=== PATIENT | male | born 1945 | race Caucasian/White ===

== ENCOUNTER → 2019-05-09 12:43 | Outpatient (BNVA) | payer MEDICARE, OTHER, SELFPAY | PROVIDERS: Family Provider Internal Medicine; PCP Internal Medicine; Visit Provider Specialist | DX: G30.9 Alzheimer's disease, unspecified (principal); F02.80 Dementia in other diseases classified elsewhere, unspecified severity, without behavioral disturbance, psychotic disturbance, mood disturbance, and anxiety | CPT/HCPCS: 99213 ==

== ENCOUNTER 2019-05-21 18:49 | Inpatient (IN) | payer MEDICARE, OTHER, SELFPAY ==
[2019-05-21 18:56] VITALS: BP 126/74; PULSE 88; RESP 18; TEMP 38.2; O2SAT 96; BMI 22.2
--- NOTE | 2019-05-21 19:03 | XRR_ITS ---
PROCEDURE INFORMATION: Exam: XR Chest, 1 View Exam date and time: 05/21/2019 7:27 PM Age: 73 years old Clinical indication: Cough TECHNIQUE: Imaging protocol: XR of the chest Views: 1 view. COMPARISON: XR CHEST 06/15/2018 2:56 PM FINDINGS: Lungs: Poor inspiration. Decreased lung volumes. Increased bibasilar interstitial lung disease, more prominent on the left, which could be due to interstitial pneumonitis given the history. No central pulmonary vascular congestion or perihilar edema. No focal dense lung consolidation. Pleural space: No pleural effusion or pneumothorax. Heart/Mediastinum: The cardiac silhouette is not enlarged. The mediastinal contours are normal. Bones/joints: There is a curvature of the lower thoracic spine convex to the right associated with multilevel disc degeneration. XR/XR chest 1V portable [id number] IMPRESSION: Asymmetric bibasilar interstitial lung disease, possibly interstitial pneumonitis.
--- NOTE | 2019-05-21 19:08 | ED_ITS ---
Entered by Rae Dill, acting as scribe for Dawit Young DO May 21, 2019 18:49 HPI - Fever General: Chief Complaint: Fever Stated Complaint: syncope Time Seen by Provider: 05/21/19 19:06 Source: family Mode of arrival: EMS Limitations: no limitations History of Present Illness: HPI Narrative: 73 yo Male presents to ED with complaint of . Pt's states that the patient has dementia. Pt's states that the patient has been doing really well and has been very active. Pt's states that the patient almost fell down the stairs today. Pt's states that when the patient woke up from his nap, it took 2 of them to get him up and to the bathroom and that the patient has had increased weakness. Pt's states that the patient has had difficulty lifting his feet. Pt's states that the patient had a 102 temperature at home. Pt's states that all of these changes occurred today around 16:00. Pt's states that the patient hasn't h ad any other drastic changes recently. MD elicited complaint: fever and weakness Onset (ago): hour(s) Measured temperature: 103.2 F Exacerbating factors: nothing Relieving factors: nothing Associated symptoms: Reports other (weakness); Deny abdominal pain, back/flank pain, chills, chest pain, confusion, diarrhea, dysuria, extremity pain, headache(s), nasal congestion, nausea, night sweats or vomiting Treatments prior to arrival fever: none Review of Systems Const: Reports: fever; Denies: chills, body aches, fatigue, malaise or night sweats Eyes: Denies: change in vision or blurry vision ENMT: Denies: throat pain, oral sores/lesions, dental pain, nasal discharge or nasal congestion Card: Denies: chest pain, palpitations, irregular heart rhythm, edema, syncope, shortness of breath on exertion, shortness of breath when lying down or leg pain with exertion Resp: Denies: shortness of breath, productive cough, non-productive cough or wheezing GI: Denies: abdominal pain, nausea, vomiting, vomiting blood, coffee grounds in vomit, difficulty swallowing, heartburn/indigestion, diarrhea, constipation, cramping, blood in stool or black tarry stool : Denies: flank pain, difficulty urinating, painful urination, urinary frequency, urinary urgency, urinary incontinence or blood in urine Musc: Denies: neck pain, back pain, extremity pain, extremity swelling, joint pain or joint swelling Skin/Breast: Denies: rash, itching or redness Neuro: Reports: weakness in extremities; Denies: headache, numbness in extremities, changes in sensation, lack of coordination, difficulty walking, frequent falls, dizziness, vertigo or confusion Psych: Denies: anxiety, depression, loss of interest, visual hallucinations, auditory hallucinations, suicidal ideation or homicidal ideation Endo: Denies: excessive urination, excessive thirst, tired all the time or cold intolerance Marcelino/Lymph: Denies: easy bruising, easy bleeding, petechiae, enlarged lymph nodes or tender lymph nodes PFSH ED PFSH: Medical History (Updated 05/25/19 @ 06:11 by Dawit Young DO) Alzheimer's dementia Dementia Immunosuppressed status Surgical History (Updated 05/25/19 @ 06:11 by Dawit Young DO) Liver transplant recipient Family History Denies family history of Diabetes CAD (coronary artery disease) Cancer Hypertension Stroke Social History Smoking and tobacco status: never smoked Alcohol intake: never History of recent travel: No Physical Exam Const: COMMON NORMALS: average body habitus, oriented x3 and alert GENERAL APPEARANCE: cooperative, comfortable, well kempt and well developed NUTRITIONAL APPEARANCE: obese ORIENTATION/CONSCIOUSNESS: Yes awake, Yes oriented to person and Yes oriented to place HENMT: COMMON NORMALS: normocephalic, head/scalp atraumatic, EAC's normal, TM's normal bilaterally, external nose normal, moist oral mucous membranes and oropharynx normal HEAD & SCALP: normocephalic and atraumatic NOSE: external nose normal EXTERNAL AUDITORY CANAL: EAC's normal TYMPANIC MEMBRANE: TM's normal bilaterally MOUTH: oral and palatal mucosa normal, lip normal and tongue normal THROAT: posterior oropharynx normal and tonsils normal Eye: COMMON NORMALS: PERRL, EOMs intact bilaterally, conjunctivae normal and no scleral icterus CONJUNCTIVA: Yes conjunctivae normal PUPIL: Yes PERRL Neck/C-Spine: COMMON NORMALS: full ROM, no lymphadenopathy, supple, no meningeal signs and thyroid normal THYROID: thyroid normal and asymmetrical Lymph: LYMPHATIC: no lymphadenopathy noted Resp: COMMON NORMALS: normal respiratory effort, no retractions, no use of accessory muscles and clear to auscultation bilaterally AUSCULTATION: clear to auscultation bilaterally Cardio: COMMON NORMALS: regular rate and regular rhythm RATE: regular rate RHYTHM: regular rhythm HEART SOUNDS: no murmurs GI: COMMON NORMALS: normal to inspection, nondistended, normoactive bowel sounds, soft to palpation and no hepatosplenomegaly PALPATION: Yes soft and Yes no hepatosplenomegaly : COMMON NORMALS: Yes no CVA tenderness BLADDER/KIDNEY EXAM: Yes no CVA tenderness Back/Pelvis: COMMON NORMALS: no CVA tenderness LUMBAR SPINE/LOWER BACK: Yes normal to inspection Extremity: COMMON NORMALS: no clubbing, cyanosis or edema, no calf tenderness and no pedal edema Neuro: COMMON NORMALS: oriented x3 SENSORIUM/ORIENTATION: Yes alert, Yes oriented to person and Yes oriented to place MENINGEAL SIGNS: Yes no meningeal signs Psych: APPEARANCE: Yes well kempt Skin: COMMON NORMALS: no rashes or lesions noted and skin turgor normal GENERAL SKIN EXAM: no rashes or lesions noted and turgor normal Course Vital Signs: Vital signs: Vital Signs Temperature 99.0 F 05/23/19 14:54 Pulse Rate 95 05/23/19 14:54 Respiratory Rate 18 05/23/19 14:54 Blood Pressure 90/57 05/23/19 14:54 Pulse Oximetry 94 05/23/19 14:54 MDM - Fever MDM Narrative: Medical decision making narrative: Is a history of primary ascending cholangitis he previously had a liver transplant he still on immunosuppressants and he has a elevated fever of unknown origin. Work-up in ER did not show specific source. We will go ahead and admit for fever of unknown origin initial antibiotic started discussed with Dr. Patterson. Lab Data: Labs: Lab Results 05/21/19 05/21/19 05/21/19 Range/Units 19:20 19:20 19:20 WBC 2.6 L (4.0-10.0) 10^3/ uL RBC 4.00 L (4.1-5.3) 10^6/u L Hgb 13.4 (11.7-16.6) g/dL Hct 37.9 L (42.0-52.0) % MCV 94.8 H (80-94) fL MCH 33.5 (28.0-34.0) pg MCHC 35.4 (30.0-36.0) g/dL RDW 12.7 (12.1-15.1) % Plt Count 80 L (130-400) 10^3/c mm MPV 8.8 (7.4-10.4) fL Neut % (Auto) 55.5 % Lymph % (Auto) 28.5 % [place] % (Auto) 11.7 % Eos % (Auto) 0.0 % Baso % (Auto) 0.4 % Neut # (Auto) 1.4 L (1.8-7.7) 10^3/u L Lymph # (Auto) 0.7 L (0.8-4.8) 10^3/u L [place] # (Auto) 0.3 (0.2-0.9) 10^3/u L Eos # (Auto) 0.0 (0.0-0.8) 10^3/u L Baso # (Auto) 0.0 (0.0-0.1) 10^3/u L Nucleated RBC % (a uto) 0 % Nucleated RBCs # 0.0 /100WBC PT (10.5-13.3) SECO NDS INR (0.8-1.2) APTT (23.9-36.7) SECO NDS Sodium 124 L (136-145) mmol/L Potassium 4.1 (3.5-5.1) mmol/L Chloride 87 L (98-107) mmol/L Carbon Dioxide 25 (22-29) mmol/L Anion Gap 16.1 (5-19) BUN 15 (8-23) mg/dL Creatinine 0.8 (0.7-1.2) mg/dL Glucose 180 H (65-115) mg/dL Calculated Osmolal ity 259 L (285-295) mOsm/k g Lactic Acid 1.3 (0.5-2.2) mmol/L Calcium 9.5 (8.5-10.5) mg/dL Magnesium 1.6 L (1.7-2.3) mg/dL Total Bilirubin 0.8 (0.15-1.2) mg/dL AST 51 H (0-40) U/L ALT 48 H (0-41) U/L Alkaline Phosphata se 281 H (40-130) IU/L Total Protein 7.1 (6.6-8.7) g/dL Albumin 4.1 (3.5-5.2) g/dL Globulin 3.0 (1.3-4.6) g/dL Urine Color (Yellow) Urine Appearance (CLEAR) Urine pH (5-7) Ur Specific Gravit y (1.005-1.030) Urine Protein (Negative) Urine Glucose (UA) (Normal) Urine Ketones (Negative) Urine Blood (Negative) Urine Nitrate (Negative) Urine Bilirubin (NEGATIVE) Urine Urobilinogen (Negative) mg/dL Ur Leukocyte Ginny ase (Negative) Urine RBC (0-2) /hpf Urine WBC (0-5) /hpf Ur Squamous Epith Cells (0-5) Urine Bacteria (NONE) Influenza Type A A g (Negative) POC Influenza B Ag (Negative) 05/21/19 05/21/19 05/21/19 Range/Units 19:20 19:46 20:47 WBC (4.0-10.0) 10^3/ uL RBC (4.1-5.3) 10^6/u L Hgb (11.7-16.6) g/dL Hct (42.0-52.0) % MCV (80-94) fL MCH (28.0-34.0) pg MCHC (30.0-36.0) g/dL RDW (12.1-15.1) % Plt Count (130-400) 10^3/c mm MPV (7.4-10.4) fL Neut % (Auto) % Lymph % (Auto) % [place] % (Auto) % Eos % (Auto) % Baso % (Auto) % Neut # (Auto) (1.8-7.7) 10^3/u L Lymph # (Auto) (0.8-4.8) 10^3/u L [place] # (Auto) (0.2-0.9) 10^3/u L Eos # (Auto) (0.0-0.8) 10^3/u L Baso # (Auto) (0.0-0.1) 10^3/u L Nucleated RBC % (a uto) % Nucleated RBCs # /100WBC PT 15.00 H (10.5-13.3) SECO NDS INR 1.14 (0.8-1.2) APTT 33.8 (23.9-36.7) SECO NDS Sodium (136-145) mmol/L Potassium (3.5-5.1) mmol/L Chloride (98-107) mmol/L Carbon Dioxide (22-29) mmol/L Anion Gap (5-19) BUN (8-23) mg/dL Creatinine (0.7-1.2) mg/dL Glucose (65-115) mg/dL Calculated Osmolal ity (285-295) mOsm/k g Lactic Acid (0.5-2.2) mmol/L Calcium (8.5-10.5) mg/dL Magnesium (1.7-2.3) mg/dL Total Bilirubin (0.15-1.2) mg/dL AST (0-40) U/L ALT (0-41) U/L Alkaline Phosphata se (40-130) IU/L Total Protein (6.6-8.7) g/dL Albumin (3.5-5.2) g/dL Globulin (1.3-4.6) g/dL Urine Color Dark yellow (Yellow) Urine Appearance Clear (CLEAR) Urine pH 6 (5-7) Ur Specific Gravit y 1.020 (1.005-1.030) Urine Protein 1+ H (Negative) Urine Glucose (UA) Norm (Normal) Urine Ketones Negative (Negative) Urine Blood 2+ H (Negative) Urine Nitrate Negative (Negative) Urine Bilirubin Neg (NEGATIVE) Urine Urobilinogen Norm (Negative) mg/dL Ur Leukocyte Ginny ase Negative (Negative) Urine RBC 0-4 H (0-2) /hpf Urine WBC Rare (0-5) /hpf Ur Squamous Epith Cells Rare (0-5) Urine Bacteria Trace (NONE) Influenza Type A A g Negative (Negative) POC Influenza B Ag Negative (Negative) Discharge Plan Discharge Patient Disposition: Admitted As Inpatient Admit Provider: Sammi Patterson Clinical Impression: Liver transplant recipient, Immunosuppressed status, Fever and chills, Alzheimer's dementia, Sclerosing cholangitis Condition: Stable Discharge Orders: Transfer Out of Facility (Order); Ordered 05/23/19 Ordered By: Alden Min Referrals: Isra Reyes DO [Primary Care Provider] - Interventions: ED Discharge Assessment Last Done: 05/22/19 00:13 Discharge Date/Time: 05/22/19 00:15 Coding Level of Care Code ED Meat Blender for Chg Fwd Exam Comprehensive The documentation recorded by the Fuentes smith Carmen, accurately reflects the service I personally performed and the decisions made by Hector andrea Curtis L, DO May 21, 2019 18:49
[2019-05-21 19:26] LABS: Basophils % 0.4 %; Hematocrit 37.9 % (42.0-52.0); Hemoglobin 13.4 g/dL (11.7-16.6); Lymphocytes # 0.7 10^3/uL (0.8-4.8); Lymphocytes % 28.5 %; Mean Corpuscular HGB Conc 35.4 g/dL (30.0-36.0); Mean Corpuscular Hemoglobin 33.5 pg (28.0-34.0); Mean Corpuscular Volume 94.8 fL (80-94); Mean Platelet Volume 8.8 fL (7.4-10.4); Monocytes # 0.3 10^3/uL (0.2-0.9); Monocytes % 11.7 %; Neutrophils # 1.4 10^3/uL (1.8-7.7); Neutrophils % 55.5 %; Nucleated Red Blood Cells % 0 %; Platelet Count 80 10^3/cmm (130-400); Red Cell Distribution Width 12.7 % (12.1-15.1); White Blood Count 2.6 10^3/uL (4.0-10.0)
[2019-05-21 19:51] LABS: Alanine Aminotransferase 48 U/L (0-41); Albumin Level 4.1 g/dL (3.5-5.2); Alkaline Phosphatase 281 IU/L (40-130); Anion Gap 16.1 (5-19); Aspartate Amino Transferase 51 U/L (0-40); Blood Urea Nitrogen 15 mg/dL (8-23); Calcium 9.5 mg/dL (8.5-10.5); Carbon Dioxide 25 mmol/L (22-29); Chloride 87 mmol/L (98-107); Creatinine Clr Calc Pharmacy 84.9089; Glucose 180 mg/dL (65-115); Magnesium 1.6 mg/dL (1.7-2.3); Osmolality Calculated 259 mOsm/kg (285-295); Potassium 4.1 mmol/L (3.5-5.1); Sodium 124 mmol/L (136-145); Total Bilirubin 0.8 mg/dL (0.15-1.2); Total Protein 7.1 g/dL (6.6-8.7)
[2019-05-21 19:52] LABS: Lactic Sepsis W/Reflex 1.3 mmol/L (0.5-2.2)
[2019-05-21] MEDS: acetaminophen 325 mg Tablet 650 MG PO (20:12)
[2019-05-21] MEDS: sodium chloride 0.9% 500 ML 999 ML IV (20:23)
--- NOTE | 2019-05-21 20:32 | XRR_ITS ---
PROCEDURE INFORMATION: Exam: XR Pelvis Exam date and time: 05/21/2019 8:45 PM Age: 73 years old Clinical indication: Pain and abnormal findings; Abnormal lab test; Elevated alk phos; Pelvic pain; Additional info: Pain/elevated alk phos TECHNIQUE: Imaging protocol: XR pelvis. Views: 1 or 2 view. COMPARISON: No relevant prior studies available. FINDINGS: Bones/joints: No fracture. No dislocation. No lytic or sclerotic lesions. No hip joint space narrowing. The symphysis pubis and sacroiliac joints are not diastatic. Soft tissues: No acute soft tissue abnormality. XR/XR pelvis 1-2V* [id number] IMPRESSION: No acute osseous abnormality.
[2019-05-21] MEDS: levofloxacin-dextrose 5 % 750 MG/150 ML PREMIX 150 MG IV (20:53)
[2019-05-21 20:55] LABS: INR 1.14 (0.8-1.2)
[2019-05-21 21:02] VITALS: TEMP 38.7
[2019-05-21 21:02] LABS: Partial Thromboplastin Time 33.8 SECONDS (23.9-36.7)
[2019-05-21 21:34] LABS: Urine Appearance Clear (CLEAR); Urine Color Dark Yellow (Yellow); pH Urine 6 (5-7)
[2019-05-21 21:35] LABS: Bacteria Urine TRACE; Bilirubin Urine Neg (NEGATIVE); Blood Urine 2+ (Negative); Glucose Urine UA Norm (Normal); Ketones Urine Negative (Negative); Leukocyte Esterase Urine Negative (Negative); Nitrate Urine Negative (Negative); Protein Urine 1+ (Negative); RBC Urine 0-4 /hpf (0-2); Squamous Epithelial Cell Urine RARE (0-5); Urobilinogen Urine Norm (Negative); WBC Urine RARE /hpf (0-5)
[2019-05-21 21:55] LABS: Influenza A by IFA Negative (Negative); Influenza B by IFA Negative (Negative)
[2019-05-21] MEDS: sodium chlor 0.9% + KCl 20 mEq 20 MEQ/1,000 ML BAG 125 MEQ IV (22:26)
[2019-05-21 22:30] VITALS: BP 133/77; PULSE 89; RESP 16; TEMP 38.1; O2SAT 93
--- NOTE | 2019-05-21 22:32 | PC.NURSE ---
pt temp 100.5 @ 7096
[2019-05-21 23:09] VITALS: BP 122/82; PULSE 89; RESP 16; TEMP 38.7; O2SAT 94
[2019-05-22] VITALS (11 sets, daily range): BP systolic 101–126; BP diastolic 51–79; PULSE 78–128; RESP 18–20; TEMP 36.9–38.7; O2SAT 92–98; BMI 22.2
--- NOTE | 2019-05-22 00:01 | P.HP_ITS ---
Providers/Chief Complaint Admitting Physician: Sammi Patterson MD Primary Care Provider: Isra Reyes DO Chief Complaint: syncope History of Present Illness Thai Fagan is a 73 year old male with a PMH liver transplant for primary biliary cirrhosis, currently on tacrolimus and MMF, Alzheimer's dementia, hypothyroidism, who is presenting today with c/o fever and cough since the past 2-3 days. noted him to be febrile and having chills starting yesterday evening. Prior to then, he had been having a dry cough over the past week. No expectoration. No shortness of breath. No c/o chest pain , dyspnea, dysuria, nausea, vomiting or diarrhea. No rashes anywhere. CXR per my read does not show any gross infiltrates. Patient is saturating 93% on RA. T max 101.6F. Of note, he has recently had family members including son and grandchildren visit him from [place]. Per , her children had quarantined themselves for 14 days prior to travel to [place] as a precautionary measure. They travelled by car. Review of Systems General: Reports: 10 or more systems reviewed and unremarkable except in HPI and below Const: Denies: fever, chills or body aches Eyes: Denies: change in vision, blurry vision or photophobia ENMT: Reports: hoarseness; Denies: throat pain, enlarged tonsils, painful swallowing or nasal congestion Card: Denies: chest pain, palpitations, irregular heart rhythm, edema, swelling of feet/ankles, lightheadedness, pre-syncope, shortness of breath on exertion or shortness of breath when lying down Resp: Denies: shortness of breath, productive cough, non-productive cough, wheezing, stridor, pain on inspiration, change in phlegm color, coughing up blood or chest congestion GI: Denies: abdominal pain, nausea, vomiting, vomiting blood, coffee grounds in vomit, difficulty swallowing, heartburn/indigestion, diarrhea, constipation, cramping, change in stool character, blood in stool or black tarry stool : Denies: flank pain, painful urination, urinary frequency, urinary urgency, urinary hesitancy or blood in urine Musc: Denies: neck pain, back pain, extremity pain, joint swelling, joint warmth or deformity Neuro: Denies: headache, numbness in extremities, weakness in extremities, changes in sensation, difficulty walking, frequent falls, dizziness, vertigo, behavioral changes, slurred speech or seizure-like activity Psych: Denies: anxiety, depression, suicidal ideation or homicidal ideation Endo: Denies: excessive urination, excessive thirst, tired all the time, cold intolerance or hot flashes Marcelino/Lymph: Denies: easy bruising or easy bleeding Medications/Allergies Allergies Allergy/AdvReac Type Severity Reaction Status Date / Time No Known Allergies Allergy Verified 05/21/19 19:02 PFSH Acute PFSH: Medical History (Updated 05/22/19 @ 00:45 by Sammi Patterson MD) Alzheimer's dementia Dementia Immunosuppressed status Surgical History (Updated 05/22/19 @ 00:45 by Sammi Patterson MD) Liver transplant recipient Family History Denies family history of Diabetes CAD (coronary artery disease) Cancer Hypertension Stroke Social History Smoking and tobacco status: never smoked Alcohol intake: never History of recent travel: No Vitals/I&O/Wt Last Vital Signs Temp 100.5 F H 05/21/19 22:30 Pulse 89 05/21/19 22:30 Resp 16 05/21/19 22:30 BP 133/77 05/21/19 22:30 Pulse Ox 93 05/21/19 22:30 Weight last 48 hrs Weight 70.307 kg Physical Exam Narrative: EXAM NARRATIVE: GEN: Awake, alert and oriented, no acute distress, tremors+, baseline per , forgetful (doesnt know if he is on immunosuppressants, liver transplant, etc) CVS: S1S2 N RS: CTA B/L Abd: Soft, nt/nd , bs+ RESIDENCY PROGRAM COORDINATOR: no focal neuro deficits Data : 05/21/19 19:20 05/21/19 19:20 Micro: Microbiology 05/21/19 20:22 Blood Culture - Preliminary Blood SPECIMEN COLLECTED 05/21/19 19:20 Blood Culture - Preliminary Blood SPECIMEN COLLECTED A&P Assessment and plan (1) Liver transplant recipient: Status: Acute Code(s): Z94.4 - Liver transplant status (2) Sclerosing cholangitis: Status: Acute Code(s): K83.09 - Other cholangitis (3) Alzheimer's dementia: Status: Acute Code(s): G30.9 - Alzheimer's disease, unspecified; F02.80 - Dementia in other diseases classified elsewhere without behavioral disturbance (4) Immunosuppressed status: Status: Acute Code(s): D89.9 - Disorder involving the immune mechanism, unspecified (5) Fever and chills: Status: Acute Code(s): R50.9 - Fever, unspecified Additional A&P Information Admit to med/surg for fever w/up in immunocompromised patient 1. Fever and Chills Patient c/o fever, chills and cough over the past 2-3 days Does not apepar to have any localizing signs at this present time. CXR without consolidation per my read, UA does not appear c/w UTI, no bedsores, no diarrhea, nausea or vomiting. Influenza swab negative. Check blood cx May be viral URI, given recent h/o contact with family members from [place] from an area with COVID outbreak, and patient's underlying immunocompromised status, will check COVID PCR. Isolation precautions until then. Cefepime 2g iv q12h empirically while undergoing fever work up. No visble pneumonitis, eye symptoms or GI symptoms at this time, less likely CMV reactivation 2. H/o liver transplant on tacrolimus and MMF. AST/ALT mildly elevated at 51 and 48. Check tacrolimus level holding tacrolimus and MMF for overnight while undergoing fever w/up. Will need to discuss with patients' barrel roller operator in am regarding recommendations for further holding vs resuming meds at this time and risk of rejection. No coagulop athy at this present time 3. Hyponatremia: currenty Na 124, appears to be at baseline per review of prior labs from nov and dec 2018. Clinically appears mildly dehydrated, IVF hydration for overnight 4. Hypomaagnesemia: supplement 2g iv 5. h/o sclerosing cholangitis: continue mesalamine. tacro+ MMF as above 6. Leukopenia, thrombocytopenia, ? related to tacrolimus vs sepsis. Check tacrolimus level Full code DVT ppx: heparin Attestations Medical Necessity Statement*: Anticipate >2MN admission for w/up fever in immunocomrpomised host Coding Level of Care Code Acute Car Cleaner for [facility] Fw Diagnoses Liver transplant recipient Z94.4 Sclerosing cholangitis K83.09 Alzheimer's dementia G30.9; F02.80 Immunosuppressed status D89.9 Fever and chills R50.9
[2019-05-22] MEDS: cefepime 2,000 MG in sodium chloride 0.9% (plus) 50 ML 100 MG IV ×2 (00:33→11:28)
--- NOTE | 2019-05-22 01:07 | PC.NURSE ---
Patient and educated about the importance of wearing a mask if they exit the room. Patient and educated on how to properly wash there hands and the importance of isolating themselves from others until the COVID-19 results come back. Patient and given print out on COVID-19 and all questions answered.
[2019-05-22] MEDS: magnesium sulfate premix 2 GM/50 ML PIGGYBACK IV (02:21)
[2019-05-22] MEDS: sodium chlor 0.9% + KCl 20 mEq 20 MEQ/1,000 ML BAG 125 MEQ IV (04:41)
[2019-05-22] MEDS: heparin 5,000 unit/mL INJ 1 mL 5000 UNIT SUBCUT ×2 (04:43→18:15)
[2019-05-22 06:33] LABS: Basophils % 0.5 %; Hematocrit 35.1 % (42.0-52.0); Hemoglobin 12.4 g/dL (11.7-16.6); Lymphocytes # 0.5 10^3/uL (0.8-4.8); Lymphocytes % 26.8 %; Mean Corpuscular HGB Conc 35.3 g/dL (30.0-36.0); Mean Corpuscular Volume 93.4 fL (80-94); Mean Platelet Volume 9.2 fL (7.4-10.4); Monocytes # 0.3 10^3/uL (0.2-0.9); Monocytes % 12.6 %; Neutrophils % 52.5 %; Nucleated Red Blood Cells % 0 %; Platelet Count 69 10^3/cmm (130-400); Red Blood Count 3.76 10^6/uL (4.1-5.3); Red Cell Distribution Width 12.6 % (12.1-15.1)
[2019-05-22 06:47] LABS: Magnesium 1.9 mg/dL (1.7-2.3)
[2019-05-22 06:48] LABS: Alanine Aminotransferase 42 U/L (0-41); Albumin Level 3.6 g/dL (3.5-5.2); Alkaline Phosphatase 259 IU/L (40-130); Anion Gap 10.3 (5-19); Aspartate Amino Transferase 50 U/L (0-40); Blood Urea Nitrogen 14 mg/dL (8-23); Calcium 8.7 mg/dL (8.5-10.5); Carbon Dioxide 27 mmol/L (22-29); Chloride 90 mmol/L (98-107); Creatinine Clr Calc Pharmacy 84.9089; Globulin 2.8 g/dL (1.3-4.6); Glucose 140 mg/dL (65-115); Osmolality Calculated 255 mOsm/kg (285-295); Potassium 4.3 mmol/L (3.5-5.1); Sodium 123 mmol/L (136-145); Total Bilirubin 0.9 mg/dL (0.15-1.2); Total Protein 6.4 g/dL (6.6-8.7)
[2019-05-22 07:25] LABS: Slide Review Slide Review Perform
[2019-05-22] MEDS: aspirin 81 mg EC Tablet PO (08:48)
[2019-05-22] MEDS: memantine 5 mg tablet 10 MG PO ×2 (08:49→18:15)
[2019-05-22] MEDS: levothyroxine 112 mcg Tablet PO (08:49)
[2019-05-22] MEDS: tamsulosin 0.4 mg Capsule PO (08:49)
[2019-05-22] MEDS: levothyroxine 25 mcg Tablet PO (08:49)
[2019-05-22] MEDS: finasteride 5 mg Tablet PO (08:49)
[2019-05-22] MEDS: allopurinol 300 mg Tablet 150 MG PO (08:50)
[2019-05-22] MEDS: venlafaxine ER (24HR) 150 mg Capsule PO (08:50)
[2019-05-22] MEDS: donepezil 5 MG Tablet 20 MG PO (10:09)
--- NOTE | 2019-05-22 17:08 | CTR_ITS ---
PROCEDURE INFORMATION: Exam: CT Chest Without Contrast Exam date and time: 05/22/2019 5:15 PM Age: 73 years old Clinical indication: Patient HX: Fever, PT denies surg HX on spine; Additional info: Interstitial changes, fever TECHNIQUE: Imaging protocol: Computed tomography of the chest without contrast. Total DLP: 646.1 mGy-cm Radiation optimization: All CT scans at this facility use at least one of these dose optimization techniques: automated exposure control; mA and/or kV adjustment per patient size (includes targeted exams where dose is matched to clinical indication); or iterative reconstruction. COMPARISON: CR XR chest 1V portable [id number] 05/21/2019 7:14 PM FINDINGS: Lungs: Subpleural atelectasis in the lung bases, lingula, and right middle lobe. The lungs are otherwise clear. Pleural space: Unremarkable. No pneumothorax. No pleural effusion. Heart: Coronary artery calcifications. The heart size is normal. Aorta: Unremarkable. No aortic aneurysm. Inferior vena cava: Sutures along the inferior vena cava , likely from prior liver transplant. Lymph nodes: Subcentimeter retroperitoneal lymph nodes are most likely reactive. Pancreas: Course scattered calcifications in the pancreas, consistent with chronic calcific pancreatitis. Spleen: Splenic hilar varices. Bones/joints: Unremarkable. No acute fracture. Soft tissues: Unremarkable. CT/CT chest [facility] [id number] IMPRESSION: 1. No acute findings. Radiation Dose CTDIVOL = (mGy): DLP = 646.1 (mGy-cm)
--- NOTE | 2019-05-22 17:32 | CTR_ITS ---
PROCEDURE INFORMATION: Exam: CT Cervical Spine Without Contrast Exam date and time: 05/22/2019 5:37 PM Age: 73 years old Clinical indication: Patient HX: Swelling, PT denies surg HX on spine; Additional info: Swelling few days ago R neck, fever, immunosuppressed TECHNIQUE: Imaging protocol: Computed tomography images of the cervical spine without contrast. Total DLP: 751.7 mGy-cm Radiation optimization: All CT scans at this facility use at least one of these dose optimization techniques: automated exposure control; mA and/or kV adjustment per patient size (includes targeted exams where dose is matched to clinical indication); or iterative reconstruction. COMPARISON: CT Cervical Spine wo* [id number] 01/27/2019 11:05 AM FINDINGS: Vertebrae: The vertebral body alignment and stature is normal. The facets are intact with mild degenerative changes. Disc space narrowing at C5-C6 and C6-C7 with degenerative endplate sclerosis and spurring. C1-C2: Degenerative changes of the odontoid process. C2-C3: No disc herniation. No spinal canal stenosis. No neural foraminal narrowing. C3-C4: No disc herniation. No spinal canal stenosis. No neural foraminal narrowing. C4-C5: No disc herniation. No spinal canal stenosis. No neural foraminal narrowing. C5-C6: Bilateral bony foraminal stenosis at C5-C6. Disc bulges with mild central canal stenosis at C5-C6. C6-C7: Bilateral bony foraminal stenosis at C6-C7. Disc bulges with mild central canal stenosis at C6-C7. C7-T1: No disc herniation. No spinal canal stenosis. No neural foraminal narrowing. Soft tissues: Unremarkable. Mastoid air cells: Small left mastoid effusion. Lungs: Lung apices are normal. Other findings: CT/CT cervical spin wo con* [id number] IMPRESSION: 1. No acute findings. 2. Degenerative changes, greatest at C5-C6 and C6-C7. Radiation Dose CTDIVOL = (mGy): DLP = 751.7 (mGy-cm)
--- NOTE | 2019-05-22 17:33 | CTR_ITS ---
PROCEDURE INFORMATION: Exam: CT Lumbar Spine Without Contrast Exam date and time: 05/22/2019 5:37 PM Age: 73 years old Clinical indication: Low back pain; Patient HX: PT denies surg HX on spine; Additional info: Fever, immunosuppressed, difficulty ambulating TECHNIQUE: Imaging protocol: Computed tomography images of the lumbar spine without contrast. Total DLP: 2488.47 mGy-cm Radiation optimization: All CT scans at this facility use at least one of these dose optimization techniques: automated exposure control; mA and/or kV adjustment per patient size (includes targeted exams where dose is matched to clinical indication); or iterative reconstruction. COMPARISON: No relevant prior studies available. FINDINGS: Vertebrae: The vertebral body alignment and stature is normal. Multiple Schmorl's nodes in superior L3, L4, and L5. Degenerative endplate changes at all lumbar levels. The facets are intact with degenerative changes, greatest at L3-L4 and L4-L5. L1-L2: No disc herniation. No spinal canal stenosis. No neural foraminal narrowing. L2-L3: Circumferential disc bulge at L2-L3. Mild central canal stenosis. Mild bilateral foraminal stenosis. L3-L4: Circumferential disc bulge at L3-L4. Mild-moderate central canal stenosis. Mild right and moderate left foraminal stenosis. L4-L5: Disc space narrowing at L4-L5. Circumferential disc bulge at L4-L5. Moderate bilateral foraminal stenosis. Mild central canal stenosis. L5-S1: Mild circumferential disc bulge at L5-S1. No central canal stenosis. Moderate bilateral foraminal stenosis. Liver: Changes of prior liver transplant. Lymph nodes: Subcentimeter retroperitoneal and mesenteric lymph nodes are most likely reactive. Vasculature: Splenic hilar varices. CT/CT lumbar spine wo con* [id number] IMPRESSION: 1. No acute findings. 2. Multilevel degenerative changes with foraminal and central canal stenosis as described. Radiation Dose CTDIVOL = (mGy): DLP = 2488.47 (mGy-cm)
[2019-05-22 18:23] LABS: LAB Peripheral Smear Sent for Review
--- NOTE | 2019-05-22 19:43 | P.PN_ITS ---
Subjective Subjective: Interval history: He is feeling well. Denies any cough, shortness of breath, nausea, vomiting, dysphagia, diarrhea, headache, vision changes. No dysuria. He has been having some difficulty standing up per his which is somewhat new and previously was walking without assistance. He denies any back pain, denies any numbness or pain radiating down his legs. He has history of chronic urinary incontinence which has been going on for years, but denies any bowel incontinence. Denies any saddle anesthesia. Reports was feeling a swelling on the right side of his neck where the neck joins his head which she sometimes felt when turning his head. This he says has resolved. Denies any earache or ear discharge. Reports chronic arthritis in his left knee, without current pain at rest, no swelling or erythema. Reports discussions have been ongoing with his doctor re garding replacement of that knee. Today noted to have a papular rash by the nurse sometime in the afternoon on the left flank/left side abdomen. No vesicles. Vitals/I&O/Wt Last Vital Signs Temp 100.1 F H 05/22/19 19:01 Pulse 91 05/22/19 19:01 Resp 19 H 05/22/19 19:01 BP 113/58 05/22/19 19:01 Pulse Ox 94 05/22/19 19:01 05/22/19 05/22/19 05/22/19 06:59 14:59 22:59 Intake Total 1071.25 / 1071.25 290 / 290 240 / 530 Output Total 200 / 200 Balance 871.25 / 871.25 290 / 290 240 / 530 Weight last 48 hrs Weight 70.307 kg Weight 70.307 kg Physical Exam Const: COMMON NORMALS: no apparent distress and oriented x3 OTHER: is at bedside. HENMT: COMMON NORMALS: oropharynx normal (No thrush or ulcers.) Eye: OTHER: No conjunctival injection. Neck/C-Spine: COMMON NORMALS: no JVD Resp: COMMON NORMALS: normal respiratory effort and clear to auscultation bilaterally AUSCULTATION: clear to auscultation bilaterally Cardio: COMMON NORMALS: no JVD, regular rhythm, S1 normal heart sound, S2 normal heart sound and no murmurs RHYTHM: regular rhythm HEART SOUNDS: S1 normal and S2 normal GI: COMMON NORMALS: normal to inspection, nondistended, normoactive bowel sounds, soft to palpation and non-tender PALPATION: Yes soft Extremity: COMMON NORMALS: no joint enlargement and no pedal edema Neuro: COMMON NORMALS: oriented x3 and moves all extremities Skin: RASHES: rashes noted (Left flank/left side abdomen papular erythematous rash, different size papules, without vesicles) Data : 05/22/19 05:54 05/22/19 05:54 Micro: Microbiology 05/21/19 19:20 Blood Culture - Preliminary Blood NEGATIVE TO DATE 05/21/19 20:22 Blood Culture - Preliminary Blood SPECIMEN COLLECTED A&P Assessment and plan (1) Fever and chills: Fever during the day resolved, but this evening again up to 100.1. Chest x-ray read with some interstitial findings possibly pneumonitis. He denied respiratory symptoms, and has not been having cough or sputum production. Is not short of breath and is doing well on room air. With the rash antibiotic was changed from cefepime, and with pulmonary findings changed to Primaxin and vancomycin. CT of the chest obtained. Also obtain CT of the C-spine as he was concerned about some swelling/tenderness when turning his head on the right side. Also obtained CT of lumbar spine as his reported some new difficulty with standing up. He does report chronic arthritis in left knee. There is no erythema or swelling of the knee. He denies any pain at rest or changes in his symptoms, although has been working with his primary care doctor to set up for knee replacement for a while now. Denies any headache, neck tenderness, sensitivity to light, no mouth ulcers or rash, no dysphagia, no nausea or vomiting, no diarrhea. No abdominal discomfort. Developed a rash on his left flank/left side abdomen today, erythematous papular. So far influenza negative. COVID 19 negative. Contacted his hepatology clinic in [place]. Requested to speak with staff there, RN of the physician nanoelectronics engineer discussed with the physician and then called me back. With chronically elevated alkaline phosphatase concern was for possible chronic leak at anastomosis versus chronic rejection. He does have some transaminase elevation which was not previously present. Evaluation with MRCP was recommended. Requested this for tomorrow. Evaluation by infectious disease was suggested. Discussed with hepatology clinic as well as patient family that we do not have infectious disease service. Prescription with patient family they would prefer to initiate work-up here, and transfer only in case he was deteriorating due to a number reasons including distance and confirmed COVID cases in [place]. In addition to above also requested confirmation of influenza by PCR. CMV by PCR. We will also start him on valacyclovir. Status: Acute Code(s): R50.9 - Fever, unspecified (2) Rash: Appeared sometime this afternoon, papular, with multiple size papules, erythematous. Distribution is on the left leg, left side abdomen, rounded, measuring about 20 x 20 cm. This appears to have flared after a dose of cefepime around 1230 as this was not observed in the morning. This also happened after he took a shower here. Due to suspected reaction to antibiotic, antibiotic is changed. His reports he does have allergies to different topical products which were assessed by dermatology, and his son will attempt to fax the list to us. Will request for hypoallergenic skin products only. There are no vesicles noted. Distribution is only on the left side, asymmetrical, not clearly dermatomal appearing, although cannot exclude that this may not be herpes zoster. We will request for zoster antibody testing although likelihood may be high they may come back negative anyway due to immune suppression. We will empirically cover him with valacyclovir. At this time does not have evidence of multi-dermatomal or disseminated involvement. Status: Acute Code(s): R21 - Rash and other nonspecific skin eruption (3) Liver transplant recipient: Per discussion with hepatology clinic, continue tacrolimus. Mycophenolate mofetil may be held. Check tacrolimus level. His tacrolimus dose reportedly is supposed to be 2.5 mg/day. Assess MRCP as above. Follow-up with hepatology clinic after discharge. Status: Acute Code(s): Z94.4 - Liver transplant status (4) Sclerosing cholangitis: Continue mesalamine. [place] Status: Acute Code(s): K83.09 - Other cholangitis (5) Alzheimer's dementia: Status: Acute Code(s): G30.9 - Alzheimer's disease, unspecified; F02.80 - Dementia in other diseases classified elsewhere without behavioral disturbance (6) Immunosuppressed status: Status: Acute Code(s): D89.9 - Disorder involving the immune mechanism, unspecified (7) Neutropenia: Reverse isolation. Antibiotics as above. MMF held for now. Tacrolimus requested to be continued by hepatology. Status: Acute Code(s): D70.9 - Neutropenia, unspecified (8) Thrombocytopenia: Requested peripheral smear. Status: Acute Code(s): D69.6 - Thrombocytopenia, unspecified Additional A&P Information Hyponatremia: Hold additional IVF for now. Na down to 123. Check urine studies. TSH. Hypomaagnesemia: Replaced Attestations Medical Necessity Statement*: Continue admission for assessment of management of neutropenic fever and gentleman with immunosuppression, history of liver transplantation. Coding Level of Care Code Acute Clinical Informatics Director for g Fwd Diagnoses Fever and chills R50.9 Rash R21 Liver transplant recipient Z94.4 Sclerosing cholangitis K83.09 Alzheimer's dementia G30.9; F02.80 Immunosuppressed status D89.9 Neutropenia D70.9 Thrombocytopenia D69.6
[2019-05-22] MEDS: valACYclovir 1,000 mg Tablet 1000 MG PO (20:39)
[2019-05-22 20:47] LABS: Thyroid Stimulating Hormone 3.47 uIU/mL (0.27-4.20)
[2019-05-22 22:31] LABS: Urine Random Sodium 110 mmol/L
--- NOTE | 2019-05-22 23:29 | PM.EVENT ---
Event Note Event Note: Called with patient having a fall. His was at the bedside. He has a skin tear there. It looks like he also bit his left. Him and his report that he had a bit of a nosebleed but nursing staff has not noted any findings of such. No wounds on his head. He is a alert at the moment without any acute findings otherwise beyond the skin tear in the lip lesion. I have ordered fall precautions and neuro checks for this evening. Patient reported feeling a bit dizzy prior to this event. Current vital signs do show some mild tachycardia at 109. Systolic pressure is 115. Oxygen saturations are stable. He has a low-grade fever which would account for the tachycardia. We will continue to monitor for any acute changes.
[2019-05-23] VITALS: BP 119/72; PULSE 86; RESP 17; TEMP 37.3; O2SAT 90
--- NOTE | 2019-05-23 01:32 | PC.NURSE ---
PATIENT FALL on 05/22/19 at 2310 Patient's call light was on, when this nurse entered the room patient was sitting in the floor at the end of the bed, skin tear noted to right arm and spot on lip noted where patient bit his lip was bleeding. Patient assessed and noted to have full range of motion to all extremities, helped back into bed with assist of 2 people. at bedside. Vitals obtained. Dr. Hart notified and ordered neuro checks every four hours. Patient and educated on bed alarm and safety measures.
--- NOTE | 2019-05-23 01:44 | PC.NURSE ---
PATIENT'S BED ALARM Patient's bed alarm has went off several times this shift, he was trying to get up to go to the bathroom and to his shop. Patient assisted in using urinal. patient moved to room 266 to be closer to nurses station.
[2019-05-23 04:00] VITALS: BP 111/67; PULSE 99; RESP 18; TEMP 37.8; O2SAT 92
[2019-05-23 04:52] LABS: Basophils % 0.7 %; Hematocrit 33.9 % (42.0-52.0); Lymphocytes # 0.5 10^3/uL (0.8-4.8); Lymphocytes % 36.7 %; Mean Corpuscular HGB Conc 35.4 g/dL (30.0-36.0); Mean Corpuscular Volume 93.1 fL (80-94); Mean Platelet Volume 9.4 fL (7.4-10.4); Monocytes # 0.2 10^3/uL (0.2-0.9); Monocytes % 12.9 %; Neutrophils % 45.4 %; Nucleated Red Blood Cells % 0 %; Platelet Count 54 10^3/cmm (130-400); Red Blood Count 3.64 10^6/uL (4.1-5.3); Red Cell Distribution Width 12.4 % (12.1-15.1); White Blood Count 1.4 10^3/uL (4.0-10.0)
[2019-05-23 05:03] LABS: Alanine Aminotransferase 51 U/L (0-41); Albumin Level 3.8 g/dL (3.5-5.2); Alkaline Phosphatase 316 IU/L (40-130); Anion Gap 14.6 (5-19); Aspartate Amino Transferase 69 U/L (0-40); Blood Urea Nitrogen 14 mg/dL (8-23); Calcium 8.7 mg/dL (8.5-10.5); Carbon Dioxide 24 mmol/L (22-29); Chloride 89 mmol/L (98-107); Globulin 2.7 g/dL (1.3-4.6); Glucose 153 mg/dL (65-115); Osmolality Calculated 255 mOsm/kg (285-295); Potassium 4.6 mmol/L (3.5-5.1); Sodium 123 mmol/L (136-145); Total Bilirubin 1.2 mg/dL (0.15-1.2); Total Protein 6.5 g/dL (6.6-8.7)
[2019-05-23 05:14] LABS: Neutrophils # 0.6 10^3/uL (1.8-7.7)
[2019-05-23] MEDS: heparin 5,000 unit/mL INJ 1 mL 5000 UNIT SUBCUT (06:05)
[2019-05-23] MEDS: valACYclovir 1,000 mg Tablet 1000 MG PO ×2 (06:05→13:41)
[2019-05-23] MEDS: allopurinol 300 mg Tablet 150 MG PO (07:33)
[2019-05-23] MEDS: levothyroxine 112 mcg Tablet PO (07:35)
[2019-05-23] MEDS: finasteride 5 mg Tablet PO (07:35)
[2019-05-23] MEDS: levothyroxine 25 mcg Tablet PO (07:35)
[2019-05-23] MEDS: aspirin 81 mg EC Tablet PO (07:35)
[2019-05-23] MEDS: memantine 5 mg tablet 10 MG PO (07:36)
[2019-05-23] MEDS: tamsulosin 0.4 mg Capsule PO (07:37)
[2019-05-23] MEDS: venlafaxine ER (24HR) 150 mg Capsule PO (07:37)
[2019-05-23 08:00] VITALS: BP 121/63; PULSE 98; RESP 18; TEMP 38.6; O2SAT 97
[2019-05-23 11:00] VITALS: PULSE 90; RESP 18; O2SAT 92
--- NOTE | 2019-05-23 11:23 | PM.TDS ---
Transfer Summary Providers Date of Admission: 05/21/19 22:06 Date of Discharge: 05/23/19 Attending Provider at Admission: Sammi Patterson MD Attending Provider at Transfer: Alden Min Primary Care Provider: Isra Reyes DO Anticipated Date of Transfer: Anticipated date of transfer: 05/23/19 Receiving Facility & Provider: Receiving Provider: [] Receiving facility: [] Diagnoses at Discharge Discharge Diagnosis (1) Fever and chills: Status: Acute (2) Rash: Status: Acute (3) Liver transplant recipient: Status: Acute (4) Sclerosing cholangitis: Status: Acute (5) Alzheimer's dementia: Status: Acute (6) Immunosuppressed status: Status: Acute (7) Neutropenia: Status: Acute (8) Thrombocytopenia: Status: Acute Reason for Visit Reason for Visit: Reason For Visit: syncope Hospital Course Hospital Course: 73-year-old gentleman with history of liver transplantation, on chronic immunosuppression with tacrolimus, mycophenolate, past history of PBC, Alzheimer's dementia, hypothyroidism, was admitted for assessment management after presenting with fever, 101.6, as well as weakness, and new difficulty walking. Previously mobile. Initial work-up here was negative rapid flu, with chest x-ray showing possibly some interstitial changes, but with negative noncontrast chest CT, on presentation assessed also for COVID by PCR which was negative. Urinalysis not suggestive of UTI. He had no headache, vision changes, or other symptoms of NETWORK SECURITY ADMINISTRATOR infection. History of tick fever, but no recent tick bites. Remained awake and alert. Did complain of a bump on the right side of his neck a week prior which had gone away 1-[address] cervical spine without contrast with degenerative changes, no acute changes. Denied lower back pain. Had no sensory level. Has chronic urinary incontinence, however, denied bowel incontinence. No saddle anesthesia. CT lumbar spine without contrast with degenerative changes neuroforaminal, central stenosis, however, without acute findings. He has been persistently leukopenic, neutropenic, lymphopenic, thrombocytopenic. His ANC declined from 1400 to 600 today. Platelets down from 80,000-54,000. Hemoglobin is normal. He has received IV hydration. He received a tacrolimus dose last night and this morning. Level was requested, but pending. The dosing will need to be confirmed. Rx states twice a day 2.5 mg, however, it is not clear whether this was supposed to perhaps been daily dosing intended by his telemarketer supervisor. Tacrolimus level is not back. Target 3-5 trough. His liver parameters have been mildly elevated, with mild uptrend today, AST 51 up to 69 today, ALT 48 up to 51 today, alkaline phosphatase chronically elevated, 281, up to 316 today, T bili 0.8, up to 1.2 today. Per discussion with hepatology yesterday, concern for possible stricture, versus small anastomotic leak, versus rejection, MRCP was attempted today, although on initial attempt he got somewhat confused, and test had to be rescheduled. On 05/21 also developed a left flank, left abdomen rash, with erythematous papules, no vesicles, in a circular distribution roughly 20 x 20 cm. Empirically started on valacyclovir, with requested zoster IgM, although low likelihood that this may actually be positive with his immunosuppressed status. Rash most probably reaction secondary to antibiotic, although somewhat localized. Rash is significantly better today. Cefepime received earlier that afternoon, was discontinued, antibiotics were switched to Primaxin, vancomycin. Despite treatment, still fever 101.4 today. Would benefit from additional assessment by infectious disease, hepatology, and with this was kindly accepted for further assessment and management over at [facility]. He is currently stable for transfer. Discussed with him and family and they are agreeable to proceed with the plan. Physical Exam Const: COMMON NORMALS: no apparent distress and oriented x3 OTHER: is at bedside. HENMT: COMMON NORMALS: oropharynx normal (No thrush or ulcers.) Eye: OTHER: No conjunctival injection. Neck/C-Spine: COMMON NORMALS: no JVD Resp: COMMON NORMALS: normal respiratory effort and clear to auscultation bilaterally AUSCULTATION: clear to auscultation bilaterally Cardio: COMMON NORMALS: no JVD, regular rhythm, S1 normal heart sound, S2 normal heart sound and no murmurs RHYTHM: regular rhythm HEART SOUNDS: S1 normal and S2 normal GI: COMMON NORMALS: normal to inspection, nondistended, normoactive bowel sounds, soft to palpation and non-tender PALPATION: Yes soft Extremity: COMMON NORMALS: no joint enlargement and no pedal edema Neuro: COMMON NORMALS: oriented x3 and moves all extremities Skin: RASHES: rashes noted (Left flank/left side abdomen papular erythematous rash, different size papules, without vesicles) TS Data Data Completed and Pending: Completed Studies During Hospitalization Category Date Time Status CT cervical spin wo con* [id number] Rout ine Cat Scan 05/22/19 17:[address] chest wo con 7 [id number] Routine Cat Scan 05/22/19 17:[address] lumbar spine w o con* [id number] Routi ne Cat Scan 05/22/19 17:33 Completed XR chest 1V suhail ble [id number] Stat Exams 05/21/19 19:03 Completed XR pelvis 1-2V* 7 [id number] Stat Exams 05/21/19 20:32 Completed Pending at discharge Category Date Time Status Blood Culture Sta t Lab 05/21/19 20:22 Results Blood Culture Sta t Lab 05/23/19 10:41 Ordered CYTOMEGALOVIRUS D NA, QN, REAL Routi ne Lab 05/22/19 05:54 Received Complete Blood Co unt w/Auto AM LABS Lab 05/24/19 04:00 Ordered Comprehensive Met abolic Panel AM LA BS Lab 05/24/19 04:00 Ordered FK 506 (Tacrolimu s) Routine Lab 05/21/19 23:48 Received Miscellaneous Catherine t Routine Lab 05/22/19 05:54 Received Osmolality Urine Routine Lab 05/22/19 20:47 Received Osmolality Urine Stat Lab 05/23/19 10:15 Received Vancomycin Trough Timed Lab 05/23/19 18:00 Ordered Varicella-Zoster IgM AB Routine Lab 05/22/19 05:54 Received MR MRCP [id number] Sta t MRI 05/23/19 10:31 Ordered Labs from last 24 hours 05/23/19 05/23/19 05/22/19 04:33 04:33 20:47 WBC 1.4 L RBC 3.64 L Hgb 12.0 Hct 33.9 L MCV 93.1 MCH 33.0 MCHC 35.4 RDW 12.4 Plt Count 54 L MPV 9.4 Neut % (Auto) 45.4 Lymph % (Auto) 36.7 Kemper % (Auto) 12.9 Eos % (Auto) 0.0 Baso % (Auto) 0.7 Neut # (Auto) 0.6 L* Lymph # (Auto) 0.5 L Kemper # (Auto) 0.2 Eos # (Auto) 0.0 Baso # (Auto) 0.0 Nucleated RBC % (a uto) 0 Nucleated RBCs # 0.0 Sodium 123 L Potassium 4.6 Chloride 89 L Carbon Dioxide 24 Anion Gap 14.6 BUN 14 Creatinine 0.8 Glucose 153 H Calculated Osmolal ity 255 L Calcium 8.7 Total Bilirubin 1.2 AST 69 H ALT 51 H Alkaline Phosphata se 316 H Total Protein 6.5 L Albumin 3.8 Globulin 2.7 TSH Ur Random Sodium 110 Misc Test Referenc e 05/22/19 05/21/19 05:55 23:25 WBC RBC Hgb Hct MCV MCH MCHC RDW Plt Count MPV Neut % (Auto) Lymph % (Auto) Kemper % (Auto) Eos % (Auto) Baso % (Auto) Neut # (Auto) Lymph # (Auto) Kemper # (Auto) Eos # (Auto) Baso # (Auto) Nucleated RBC % (a uto) Nucleated RBCs # Sodium Potassium Chloride Carbon Dioxide Anion Gap BUN Creatinine Glucose Calculated Osmolal ity Calcium Total Bilirubin AST ALT Alkaline Phosphata se Total Protein Albumin Globulin TSH 3.47 Ur Random Sodium Misc Test Referenc e Vitals: Last Vital Signs Temp 101.4 F H 05/23/19 08:00 Pulse 90 05/23/19 11:00 Resp 18 05/23/19 11:00 BP 121/63 05/23/19 08:00 Pulse Ox 92 05/23/19 11:00 TS Medications Medications Home Medications allopurinol 300 mg tablet 150 mg PO DAILY 05/09/19 [History Confirmed 05/22/19] aspirin 81 mg tablet,delayed release 81 mg PO DAILY 05/09/19 [History Confirmed 05/22/19] calcium carbonate 500 mg calcium (1,250 mg) chewable tablet 500 mg PO DAILY 05/09/19 [History Confirmed 05/22/19] cholecalciferol (vitamin D3) 50 mcg (2,000 unit) capsule 50 mcg PO DAILY 05/09/19 [History Confirmed 05/22/19] donepezil 10 mg tablet 20 mg PO DAILY #180 tab 05/09/19 [Rx Confirmed 05/22/19] finasteride 5 mg tablet 5 mg PO DAILY 05/09/19 [History Confirmed 05/22/19] levothyroxine 137 mcg tablet 137 mcg PO DAILY 05/09/19 [History Confirmed 05/22/19] memantine 10 mg tablet 10 mg PO BID #60 tab 05/09/19 [Rx Confirmed 05/22/19] mesalamine 800 mg tablet,delayed release 800 mg PO BID tab 05/09/19 [History Confirmed 05/22/19] mycophenolate sodium 360 mg tablet,delayed release 360 mg PO BID tab 05/09/19 [History Confirmed 05/22/19] tacrolimus 1 mg capsule 1 mg PO Q12H 05/09/19 [History Confirmed 05/22/19] tamsulosin 0.4 mg capsule 0.4 mg PO DAILY 05/09/19 [History Confirmed 05/22/19] ursodiol 500 mg tablet 1,000 mg PO DAILY tab 05/09/19 [History Confirmed 05/22/19] venlafaxine 150 mg capsule,extended release 24 hr 150 mg PO DAILY #30 cap 05/09/19 [Rx Confirmed 05/22/19] Active Medications Acetaminophen (Tylenol) 650 mg PO Q8H PRN PRN Reason: Mild/Mod Pain Or Temp >/= 101 Albuterol Sulfate (Albuterol) 2.5 mg INHALATION Q4H.RESPIRATORY PRN PRN Reason: SHORTNESS OF BREATH Last Admin: 05/22/19 20:27 Dose: 2.5 mg Documented by: Allopurinol (Zyloprim) 150 mg PO DAILY [facility] Last Admin: 05/23/19 07:33 Dose: 150 mg Documented by: Aspirin (Aspirin Ec) 81 mg PO DAILY [facility] Last Admin: 05/23/19 07:35 Dose: 81 mg Documented by: Donepezil HCl (Aricept) 20 mg PO DAILY [facility] Last Admin: 05/22/19 10:09 Dose: 20 mg Documented by: Finasteride (Proscar) 5 mg PO DAILY [facility] Last Admin: 05/23/19 07:35 Dose: 5 mg Documented by: Haloperidol Lactate (Haldol Inj) 1 mg IM Q4H PRN PRN Reason: AGITATION Heparin Sodium (Beef Lung) (Heparin) 5,000 unit SUBCUT Q12H [facility] Last Admin: 05/23/19 06:05 Dose: 5,000 unit Documented by: Potassium Chloride/Sodium Chloride (Sodium Chlor 0.9% + Kcl 20 Meq) 20 meq in 1,000 mls @ 125 mls/hr IV .Q8H [facility] Last Admin: 05/22/19 04:41 Dose: 125 mls/hr Documented by: Imipenem/Cilastatin Sodium 500 (mg/ Sodium Chloride) 100 mls @ 200 mls/hr IV Q6H [facility]; Protocol Last Admin: 05/23/19 06:26 Dose: 200 mls/hr Documented by: Vancomycin HCl 1,250 mg/ (Sodium Chloride) 250 mls @ 200 mls/hr IV Q12H [facility]; Protocol Last Admin: 05/23/19 06:26 Dose: 200 mls/hr Documented by: Ibuprofen (Motrin) 400 mg PO Q8H PRN PRN Reason: fever Levothyroxine Sodium (Synthroid) 25 mcg PO DAILY [facility] Last Admin: 05/23/19 07:35 Dose: 25 mcg Documented by: Levothyroxine Sodium (Synthroid) 112 mcg PO DAILY [facility] Last Admin: 05/23/19 07:35 Dose: 112 mcg Documented by: Non-Formulary Medication (Ursodiol) 1,000 mg PO DAILY [facility] Last Admin: 05/22/19 10:12 Dose: Not Given Documented by: Tacrolimus 0.5 Mg (Capsule) 0 each PO Q24H [facility] Non-Formulary Medication ( Sulfasalazine 500 Mg ) 0 mg PO BID [facility] Ondansetron HCl (Zofran) 4 mg IVP Q8H PRN PRN Reason: vomiting, or N/V if npo Tamsulosin HCl (Flomax) 0.4 mg PO DAILY [facility] Last Admin: 05/23/19 07:37 Dose: 0.4 mg Documented by: Valacyclovir HCl (Valacyclovir) 1,000 mg PO Q8H [facility] Last Admin: 05/23/19 06:05 Dose: 1,000 mg Documented by: Venlafaxine HCl (Effexor Xr) 150 mg PO DAILY [facility] Last Admin: 05/23/19 07:37 Dose: 150 mg Documented by: Discharge Plan Discharge Patient Disposition: Xfer Other Condition: Stable Prescriptions: No Action finasteride 5 mg tablet 5 mg PO DAILY RF: 0 ursodiol 500 mg tablet 1,000 mg PO DAILY RF: 0 allopurinol 300 mg tablet 150 mg PO DAILY RF: 0 mesalamine [Asacol HD] 800 mg tablet,delayed release (DR/EC) 800 mg PO BID RF: 0 aspirin [Aspir-81] 81 mg tablet,delayed release (DR/EC) 81 mg PO DAILY RF: 0 calcium carbonate [Calcium 500] 500 mg calcium (1,250 mg) tablet,chewable 500 mg PO DAILY RF: 0 cholecalciferol (vitamin D3) [Vitamin D3] 50 mcg (2,000 unit) capsule 50 mcg PO DAILY RF: 0 tamsulosin [Flomax] 0.4 mg capsule 0.4 mg PO DAILY RF: 0 mycophenolate sodium [Myfortic] 360 mg tablet,delayed release (DR/EC) 360 mg PO BID RF: 0 tacrolimus [Prograf] 1 mg capsule 1 mg PO Q12H RF: 0 levothyroxine [Synthroid] 137 mcg tablet 137 mcg PO DAILY RF: 0 memantine [Namenda] 10 mg tablet 10 mg PO BID Qty: 60 RF: 6 venlafaxine [Effexor XR] 150 mg capsule,extended release 24hr 150 mg PO DAILY Qty: 30 RF: 6 donepezil [Aricept] 10 mg tablet 20 mg PO DAILY Qty: 180 RF: 2 Referrals: Isra Reyes DO [Primary Care Provider] - Transfer Attestations Time Spent in Transfer Care*: greater than 30 min Quality Metrics Clinical Quality Measures: During this hospital stay, did patient experience: None Coding Level of Care Code Acute New Accounts Representative for Chg Fwd Diagnoses Fever and chills R50.9 Rash R21 Liver transplant recipient Z94.4 Sclerosing cholangitis K83.09 Alzheimer's dementia G30.9; F02.80 Immunosuppressed status D89.9 Neutropenia D70.9 Thrombocytopenia D69.6
[2019-05-23] MEDS: donepezil 5 MG Tablet 20 MG PO (11:25)
[2019-05-23] MEDS: acetaminophen 325 mg Tablet 650 MG PO (11:25)
--- NOTE | 2019-05-23 11:59 | PC.CHAP ---
Pastoral Care Encounter/Spiritual Assessment Type of Contact [] Declined railway signalling engineer visit [] Patient/Family/Request visit [] Outpatient visit [] Follow-up visit [] Physician referral [] Code/Alert [] Routine visit [] Staff referral [] Actively dying [] Patient sleeping [] Family support [] [] Out of room [] Palliative care [] [] Receiving care in room [] Pre-surgical visit [] Trauma [] Long length of stay [] ICU visit [x] Other: Isolution Relational/Emotional Strength [] Patient feels connected with others/family/visitors/staff [] Distress [] Loneliness/isolation [] Abandonment Spirituality of Patient [] Person of María [] Attends Spiritism of their María [] Believes in Prayer [] Reads Bible or Anabaptist materials [] There are Spiritual issues to be addressed General Manager In Training Interventions [] Prayer [] Active listening [] Non-anxious presence [] Spiritual/emotional support [] Crisis/trauma care [] Spiritual counseling [] Bereavement support [] Provided bereavement packet [] Provided Bible/devotional materials [] Provided toy/stuffed animal, coloring book to patient or family member [] Provided Communion [] Anointing/[place] [] Salvation [] Completed spiritual assessment [] Other: Impact on Illness or Injury [] Angry [] Fearful [] Anxious [] Often cries [] Exhaustion [] Unable to work [] Unable to attend spiritism [] Unable to walk/stand [] Unable to read [] Unable to drive [] Unable to eat/drink [] Unable to sleep [] Unable to be with family [] Patient intubated [] Other: Summary Isolutio Time spent with patient 5 mins
[2019-05-23 12:00] VITALS: BP 101/61; PULSE 95; RESP 18; TEMP 38.4; O2SAT 91
--- NOTE | 2019-05-23 13:31 | PC.NURSE ---
REPORT CALLED Report called to ANGELA Brown at [facility]# [id number]. SEAN MOORE
--- NOTE | 2019-05-23 14:49 | PC.NURSE ---
LEFT FACILITY - [id number] via ambulance. SEAN MOORE Belongings including glasses and hearing aids went with patient and were handed to the Concrete Pile Driver Operator. also sent a changes of clothes with the patient also. SEAN MOORE
[2019-05-23 14:54] VITALS: BP 90/57; PULSE 95; RESP 18; TEMP 37.2; O2SAT 94
[2019-05-24 15:06] LABS: Osmolality Urine 707 mOsm/kg (50-1200)
--- NOTE | 2019-05-24 17:44 | PC.SOCIAL ---
Notified nurse Miguel of lab result Tacrolimus being low at 2.2 faxed results to with confirmation received of successful fax.
[2019-05-25 10:52] LABS: Coronavirus Lab Test PTC NOT DETECTED
[2019-05-27 19:05] LABS: CMV DNA By PCR <200 IU/mL; CMV DNA, QN PCR <2.30 Log IU/mL; SOURCE WHOLE BLOOD
== END 2019-05-23 14:44 | disposition short-term general hospital (02) | DRG 809 ==
LOC: ER 19:06 → MEDSURG 22:37
PROVIDERS: Emergency Medicine; Admitting Provider Student in an Organized Health Care Education/Training Program; Emergency Provider Family Medicine; Family Provider Internal Medicine; PCP Internal Medicine; Visit Provider Internal Medicine
DX: D70.9 Neutropenia, unspecified (principal); E87.1 Hypo-osmolality and hyponatremia; Z94.4 Liver transplant status; K83.09 Other cholangitis; G30.9 Alzheimer's disease, unspecified; T14.8XXA Other injury of unspecified body region, initial encounter; F02.80 Dementia in other diseases classified elsewhere, unspecified severity, without behavioral disturbance, psychotic disturbance, mood disturbance, and anxiety; W19.XXXA Unspecified fall, initial encounter; D69.6 Thrombocytopenia, unspecified; Z79.82 Long term (current) use of aspirin; D89.9 Disorder involving the immune mechanism, unspecified; Y92.230 Patient room in hospital as the place of occurrence of the external cause; E83.42 Hypomagnesemia
CPT/HCPCS: 12345; 36415; 71045; 71250; 72125; 72131; 72170; 80053; 80197; 80500; 81001; 83605; 83735; 83935; 84300; 84443; 85025; 85610; 85730; 86787; 87040; 87496; 87635; 87804; 94640; 96372; 99283; J0692; J0743; J1644; J1956; J3370; J3475; J7040; J7050; J7611

== ENCOUNTER 2019-06-19 10:37 | Outpatient (CLI) | payer MEDICARE, OTHER, SELFPAY ==
[2019-06-19 11:37] LABS: Basophils % 0.3 %; Hematocrit 37.1 % (42.0-52.0); Hemoglobin 12.2 g/dL (11.7-16.6); Lymphocytes % 53.1 %; Mean Corpuscular HGB Conc 32.9 g/dL (30.0-36.0); Mean Corpuscular Hemoglobin 32.2 pg (28.0-34.0); Mean Corpuscular Volume 97.9 fL (80-94); Monocytes # 0.4 10^3/uL (0.2-0.9); Monocytes % 10.2 %; Neutrophils # 1.4 10^3/uL (1.8-7.7); Neutrophils % 35.6 %; Nucleated Red Blood Cells % 0 %; Platelet Count 103 10^3/cmm (130-400); Red Blood Count 3.79 10^6/uL (4.1-5.3); Red Cell Distribution Width 13.3 % (12.1-15.1); White Blood Count 3.8 10^3/uL (4.0-10.0)
[2019-06-19 12:10] LABS: Alanine Aminotransferase 67 U/L (0-41); Albumin Level 4.3 g/dL (3.5-5.2); Alkaline Phosphatase 365 IU/L (40-130); Anion Gap 16.7 (5-19); Aspartate Amino Transferase 57 U/L (0-40); Blood Urea Nitrogen 23 mg/dL (8-23); Carbon Dioxide 28 mmol/L (22-29); Chloride 98 mmol/L (98-107); Gamma Glutamyl Transferase 362 U/L (8-61); Globulin 3.4 g/dL (1.3-4.6); Glucose 157 mg/dL (65-115); Osmolality Calculated 286 mOsm/kg (285-295); Potassium 4.7 mmol/L (3.5-5.1); Sodium 138 mmol/L (136-145); Total Bilirubin 0.7 mg/dL (0.15-1.2); Total Protein 7.7 g/dL (6.6-8.7)
== END 2019-06-19 10:38 | disposition home or self-care (01) ==
LOC: LAB 10:37
PROVIDERS: Family Provider Internal Medicine; PCP Internal Medicine; Visit Provider Internal Medicine Gastroenterology
DX: Z94.4 Liver transplant status (principal); Z79.899 Other long term (current) drug therapy
CPT/HCPCS: 80053; 80197; 82977; 85025

== ENCOUNTER → 2019-11-08 13:17 | Outpatient (BNVA) | payer MEDICARE, OTHER, SELFPAY | PROVIDERS: Family Provider Internal Medicine; PCP Internal Medicine; Visit Provider Specialist | DX: G30.9 Alzheimer's disease, unspecified (principal); F02.80 Dementia in other diseases classified elsewhere, unspecified severity, without behavioral disturbance, psychotic disturbance, mood disturbance, and anxiety | CPT/HCPCS: 99212 ==

== ENCOUNTER 2019-11-19 14:35 | Emergency (ER) | payer MEDICARE, OTHER, SELFPAY ==
[2019-11-19 14:41] VITALS: BP 117/76; PULSE 67; RESP 14; TEMP 36.7; O2SAT 99; BMI 25.8
--- NOTE | 2019-11-19 15:00 | CTR_ITS ---
PROCEDURE INFORMATION: Exam: CT Head Without Contrast Exam date and time: 11/19/2019 3:22 PM Age: 74 years old Clinical indication: Syncope and collapse; Patient HX: Syncope w fall hitting head C/O REY and weakness; Additional info: Syncope, fall TECHNIQUE: Imaging protocol: Computed tomography of the head without contrast. Radiation optimization: All CT scans at this facility use at least one of these dose optimization techniques: automated exposure control; mA and/or kV adjustment per patient size (includes targeted exams where dose is matched to clinical indication); or iterative reconstruction. COMPARISON: CT head wo con* [id number] 12/19/2018 12:03 PM RADIATION DOSE METRICS: Total DLP (mGy-cm): 752.05 FINDINGS: Brain: Stable gissell cisterna magna which is a normal variant. Mild cerebral atrophy and ischemic leukoencephalopathy. Ventricles: No ventriculomegaly. Bones/joints: Unremarkable. No acute fracture. Paranasal sinuses: Severe left sphenoid sinus disease. Mild right posterior ethmoid sinus disease. Mastoid air cells: Visualized mastoid air cells are well aerated. Vasculature: Severe calcified intracranial atherosclerotic vessel disease. Soft tissues: Unremarkable. CT/CT head wo con* [id number] IMPRESSION: 1. Severe left sphenoid sinus disease. 2. Mild right posterior ethmoid sinus disease. 3. No acute findings. Radiation Dose CTDIVOL = (mGy): DLP = 752.05 (mGy-cm)
--- NOTE | 2019-11-19 15:00 | CTR_ITS ---
PROCEDURE INFORMATION: Exam: CT Cervical Spine Without Contrast Exam date and time: 11/19/2019 3:22 PM Age: 74 years old Clinical indication: Injury or trauma; Initial encounter; Blunt trauma; Patient HX: Syncope w fall hitting head C/O REY and weakness; Additional info: Syncope, fall TECHNIQUE: Imaging protocol: Computed tomography images of the cervical spine without contrast. Radiation optimization: All CT scans at this facility use at least one of these dose optimization techniques: automated exposure control; mA and/or kV adjustment per patient size (includes targeted exams where dose is matched to clinical indication); or iterative reconstruction. COMPARISON: No relevant prior studies available. RADIATION DOSE METRICS: Total DLP (mGy-cm): 524.51 FINDINGS: Vertebrae: Mild levoscoliosis. Moderate to severe multilevel spine degenerative changes including degenerative disc disease, spondylosis and facet degenerative changes. Discs/Spinal canal/Neural foramina: Multilevel bilateral foraminal stenosis. Soft tissues: Unremarkable. Sinuses: Severe chronic left maxillary sinus disease which can create vertex headaches. Dental: Examination is limited secondary to metallic artifact from dental fillings and/or dental hardware. Lungs: Lung apices are normal. CT/CT cervical spin wo con* [id number] IMPRESSION: 1. Severe chronic left maxillary sinus disease which can create vertex headaches. 2. No acute C-spine findings. Radiation Dose CTDIVOL = (mGy): DLP = 524.51 (mGy-cm)
--- NOTE | 2019-11-19 15:00 | XRR_ITS ---
PROCEDURE INFORMATION: Exam: XR Chest, 1 View Exam date and time: 11/19/2019 3:02 PM Age: 74 years old Clinical indication: Other: Syncope TECHNIQUE: Imaging protocol: XR of the chest Views: 1 view. COMPARISON: No relevant prior studies available. FINDINGS: Lungs: Mildly hyperaerated lungs consistent with deep inspiratory effort vs reactive airway disease vs mild COPD . Pleural space: Unremarkable. No pleural effusion. No pneumothorax. Heart/Mediastinum: Unremarkable. No cardiomegaly. Bones/joints: Mild dextroscoliosis. XR/XR chest 1V portable [id number] IMPRESSION: Mildly hyperaerated lungs consistent with deep inspiratory effort vs reactive airway disease vs mild COPD .
[2019-11-19 15:13] LABS: Basophils % 0.3 %; Hematocrit 35.6 % (42.0-52.0); Hemoglobin 12.2 g/dL (11.7-16.6); Lymphocytes # 1.6 10^3/uL (0.8-4.8); Lymphocytes % 54.2 %; Mean Corpuscular HGB Conc 34.3 g/dL (30.0-36.0); Mean Corpuscular Hemoglobin 33.1 pg (28.0-34.0); Mean Corpuscular Volume 96.5 fL (80-94); Mean Platelet Volume 9.5 fL (7.4-10.4); Monocytes # 0.4 10^3/uL (0.2-0.9); Monocytes % 13.2 %; Neutrophils % 31.6 %; Nucleated Red Blood Cells % 0 %; Platelet Count 99 10^3/cmm (130-400); Red Blood Count 3.69 10^6/uL (4.1-5.3); Red Cell Distribution Width 13.4 % (12.1-15.1); White Blood Count 2.9 10^3/uL (4.0-10.0)
[2019-11-19 15:17] LABS: INR 0.96 (0.8-1.2)
[2019-11-19 15:22] LABS: Alanine Aminotransferase 47 U/L (0-41); Alkaline Phosphatase 297 IU/L (40-130); Anion Gap 14.2 (5-19); Aspartate Amino Transferase 41 U/L (0-40); Blood Urea Nitrogen 21 mg/dL (8-23); Calcium 9.5 mg/dL (8.5-10.5); Carbon Dioxide 26 mmol/L (22-29); Chloride 97 mmol/L (98-107); Glucose 160 mg/dL (65-115); Osmolality Calculated 282 mOsm/kg (285-295); Potassium 4.2 mmol/L (3.5-5.1); Sodium 133 mmol/L (136-145); Total Bilirubin 0.6 mg/dL (0.15-1.2)
[2019-11-19 15:36] LABS: Neutrophils # 0.91 10^3/uL (1.8-7.7)
[2019-11-19 16:03] LABS: Add Urine Microscopic? NO
--- NOTE | 2019-11-19 16:11 | ECG_ITS ---
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 Measurements Intervals [place] Rate: 68 P: 64 MO: 176 QRS: 70 QRSD: 90 T: 70 QT: 391 QTc: 416 Interpretive Statements SINUS RHYTHM WITH OCCASIONAL SUPRAVENTRICULAR PREMATURE COMPLEXES Compared to ECG 12/19/2018 14:11:07 No significant changes Electronically Signed On 11-20-2019 19:10:19 CDT by Nate Juares M.D. [email or web address]/[id number]
[2019-11-19 16:15] LABS: Bilirubin Urine Neg (Negative); Blood Urine Neg (Negative); Glucose Urine UA Norm (Normal); Ketones Urine Negative (Negative); Leukocyte Esterase Urine Negative (Negative); Nitrate Urine Negative (Negative); Protein Urine Neg (Negative); Specific Gravity, Urine 1.015 (1.005-1.030); Urine Appearance Clear (CLEAR); Urine Color Yellow (Yellow); Urobilinogen Urine Norm (Negative); pH Urine 5 (5-7)
[2019-11-19 16:37] LABS: Troponin(5th) Baseline 12 ng/L (0-15)
--- NOTE | 2019-11-19 17:12 | ED_ITS ---
HPI - Syncope General: Chief Complaint: Syncope Stated Complaint: SYNCOPE; FALL; HIT HEAD Time Seen by Provider: 11/19/19 14:39 History of Present Illness: HPI narrative: This patient is a 74-year-old gentleman lives at home with his . He has a history of Alzheimer's dementia. He apparently passed out today at home. He got up from chair and was walking across the room when he told his he did not feel well and collapsed. He apparently hit his head but denies any pain currently. He is not on any blood thinners. He tells me that he does not remember what caused him to fall or how he felt before the fall. He said he feels okay now. He also has a history of being a liver transplant recipient. He also is diabetic. MD complaint: loss of consciousness and collapsed Onset (ago): hour(s) Prodromal symptoms: other (He does not remember) Witnessed: Yes - by Bystander Context: standing up Review of Systems General: Reports: ROS unobtainable due to mental status PFSH ED PFSH: Medical History Alzheimer's dementia Dementia Immunosuppressed status Surgical History Liver transplant recipient Family History Denies family history of Diabetes CAD (coronary artery disease) Cancer Hypertension Stroke Social History Smoking and tobacco status: never smoked Alcohol intake: never History of recent travel: No Physical Exam Const: COMMON NORMALS: no acute distress and alert GENERAL APPEARANCE: cooperative and comfortable ORIENTATION/CONSCIOUSNESS: Yes oriented to person and Yes oriented to place HENMT: HEAD & SCALP: normal to inspection FACE & SINUS: normal facial exam Eye: GENERAL EYE: appearance normal, both eyes and all related structures Neck/C-Spine: COMMON NORMALS: supple, no meningeal signs and no JVD Chest: COMMONS NORMALS: normal inspection of the chest Resp: COMMON NORMALS: normal respiratory effort, No use of accessory muscles and clear to auscultation bilaterally AUSCULTATION: clear to auscultation bilaterally Cardio: COMMON NORMALS: no JVD, regular rate, regular rhythm and No murmurs present (Cardio) RATE: regular rate RHYTHM: regular rhythm GI: COMMON NORMALS: Normal to inspection, nondistended, normoactive bowel sounds present, Soft to palpation and non-tender INSPECTION: Yes normal to inspection AUSCULTATION: Yes normoactive bowel sounds PALPATION: Yes Soft to palpation Back/Pelvis: COMMON NORMALS: thoracic and lumbar spine normal to inspection Extremity: COMMON NORMALS: normal to inspection Neuro: COMMON NORMALS: moves all extremities, no focal motor deficits and no sensory deficits noted SENSORIUM/ORIENTATION: Yes alert, Yes oriented to person and Yes oriented to place MENINGEAL SIGNS: Yes no meningeal signs Psych: COMMON NORMALS: mental status grossly normal, cooperative and normal affect Skin: COMMON NORMALS: no rashes or lesions noted and turgor normal GENERAL SKIN EXAM: no rashes or lesions noted and turgor normal Course ED course: Patient has no injuries from his fall. Believe he was orthostatic when he got up quickly and walked across the room. His is very comfortable taking him home. We discussed that it would not be unreasonable to put him in the hospital and observe him given the syncopal episode. She feels confident that she can monitor him closely at home. He does have sinusitis on his head CT and with his immune status I am differently can put him on some antibiotics for that. She understands to watch closely and they will return if he is worse in any way. Vital Signs: Vital signs: Vital Signs Temperature 98.0 F 11/19/19 14:41 Pulse Rate 70 11/19/19 18:17 Respiratory Rate 16 11/19/19 18:17 Blood Pressure 125/75 11/19/19 18:17 Pulse Oximetry 97 11/19/19 18:17 MDM - Syncope Lab Data: Labs: Lab Results 11/19/19 11/19/19 11/19/19 Range/Units 14:30 14:30 14:30 WBC 2.9 L (4.0-10.0) 10^3/ uL RBC 3.69 L (4.1-5.3) 10^6/u L Hgb 12.2 (11.7-16.6) g/dL Hct 35.6 L (42.0-52.0) % MCV 96.5 H (80-94) fL MCH 33.1 (28.0-34.0) pg MCHC 34.3 (30.0-36.0) g/dL RDW 13.4 (12.1-15.1) % Plt Count 99 L (130-400) 10^3/c mm MPV 9.5 (7.4-10.4) fL Neut % (Auto) 31.6 % Lymph % (Auto) 54.2 % [place] % (Auto) 13.2 % Eos % (Auto) 0.0 % Baso % (Auto) 0.3 % Neut # (Auto) 0.91 L* (1.8-7.7) 10^3/u L Lymph # (Auto) 1.6 (0.8-4.8) 10^3/u L [place] # (Auto) 0.4 (0.2-0.9) 10^3/u L Eos # (Auto) 0.0 (0.0-0.8) 10^3/u L Baso # (Auto) 0.0 (0.0-0.1) 10^3/u L Nucleated RBC % (a uto) 0 % Nucleated RBCs # 0.0 /100WBC PT 13.10 (12.1-14.9) SECO NDS INR 0.96 (0.8-1.2) Sodium 133 L (136-145) mmol/L Potassium 4.2 (3.5-5.1) mmol/L Chloride 97 L (98-107) mmol/L Carbon Dioxide 26 (22-29) mmol/L Anion Gap 14.2 (5-19) BUN 21 (8-23) mg/dL Creatinine 0.9 (0.7-1.2) mg/dL GFR Calculation Not Reportable Glucose 160 H (65-115) mg/dL Calculated Osmolal ity 282 L (285-295) mOsm/k g Calcium 9.5 (8.5-10.5) mg/dL Total Bilirubin 0.6 (0.15-1.2) mg/dL AST 41 H (0-40) U/L ALT 47 H (0-41) U/L Alkaline Phosphata se 297 H (40-130) IU/L Troponin T Baselin e (0-15) ng/L Total Protein 7.0 (6.6-8.7) g/dL Albumin 4.0 (3.5-5.2) g/dL Globulin 3.0 (1.3-4.6) g/dL Urine Color (Yellow) Urine Appearance (CLEAR) Urine pH (5-7) Ur Specific Gravit y (1.005-1.030) Urine Protein (Negative) Urine Glucose (UA) (Normal) Urine Ketones (Negative) Urine Blood (Negative) Urine Nitrate (Negative) Urine Bilirubin (Negative) Urine Urobilinogen (Negative) mg/dL Ur Leukocyte Ginny ase (Negative) 11/19/19 11/19/19 Range/Units 14:30 15:37 WBC (4.0-10.0) 10^3/ uL RBC (4.1-5.3) 10^6/u L Hgb (11.7-16.6) g/dL Hct (42.0-52.0) % MCV (80-94) fL MCH (28.0-34.0) pg MCHC (30.0-36.0) g/dL RDW (12.1-15.1) % Plt Count (130-400) 10^3/c mm MPV (7.4-10.4) fL Neut % (Auto) % Lymph % (Auto) % [place] % (Auto) % Eos % (Auto) % Baso % (Auto) % Neut # (Auto) (1.8-7.7) 10^3/u L Lymph # (Auto) (0.8-4.8) 10^3/u L [place] # (Auto) (0.2-0.9) 10^3/u L Eos # (Auto) (0.0-0.8) 10^3/u L Baso # (Auto) (0.0-0.1) 10^3/u L Nucleated RBC % (a uto) % Nucleated RBCs # /100WBC PT (12.1-14.9) SECO NDS INR (0.8-1.2) Sodium (136-145) mmol/L Potassium (3.5-5.1) mmol/L Chloride (98-107) mmol/L Carbon Dioxide (22-29) mmol/L Anion Gap (5-19) BUN (8-23) mg/dL Creatinine (0.7-1.2) mg/dL GFR Calculation Glucose (65-115) mg/dL Calculated Osmolal ity (285-295) mOsm/k g Calcium (8.5-10.5) mg/dL Total Bilirubin (0.15-1.2) mg/dL AST (0-40) U/L ALT (0-41) U/L Alkaline Phosphata se (40-130) IU/L Troponin T Baselin e 12 (0-15) ng/L Total Protein (6.6-8.7) g/dL Albumin (3.5-5.2) g/dL Globulin (1.3-4.6) g/dL Urine Color Yellow (Yellow) Urine Appearance Clear (CLEAR) Urine pH 5 (5-7) Ur Specific Gravit y 1.015 (1.005-1.030) Urine Protein Neg (Negative) Urine Glucose (UA) Norm (Normal) Urine Ketones Negative (Negative) Urine Blood Neg (Negative) Urine Nitrate Negative (Negative) Urine Bilirubin Neg (Negative) Urine Urobilinogen Norm (Negative) mg/dL Ur Leukocyte Ginny ase Negative (Negative) Discharge Plan Discharge Patient Disposition: Home Clinical Impression: Syncope due to orthostatic hypotension, Immunosuppressed status Sinusitis Qualifiers: Sinusitis location: unspecified location Chronicity: acute Recurrence: not specified as recurrent Qualified Code(s): J01.90 - Acute sinusitis, unspecified Condition: Stable Prescriptions: New amoxicillin-pot clavulanate 875-125 mg tablet 1 tab PO BID Qty: 20 RF: 0 No Action finasteride 5 mg tablet 5 mg PO DAILY RF: 0 ursodiol 500 mg tablet 1,000 mg PO QPM RF: 0 allopurinol 300 mg tablet 300 mg PO BEDTIME RF: 0 aspirin [Aspir-81] 81 mg tablet,delayed release (DR/EC) 81 mg PO DAILY RF: 0 tamsulosin [Flomax] 0.4 mg capsule 0.8 mg PO BEDTIME RF: 0 tacrolimus [Prograf] 1 mg capsule 2 mg PO Q12H RF: 0 memantine [Namenda] 10 mg tablet 10 mg PO BID Qty: 60 RF: 6 venlafaxine [Effexor XR] 150 mg capsule,extended release 24hr 150 mg PO DAILY Qty: 30 RF: 6 Tradjenta 5 mg tablet 5 mg PO DAILY RF: 0 doxycycline hyclate 100 mg Capsule See Rx Instructions .ROUTE .COMPLEX RF: 0 sulfasalazine 500 mg tablet 1,000 mg PO BID RF: 0 naltrexone 50 mg tablet 25 mg PO DAILY RF: 0 prednisone 20 mg Tablet See Rx Instructions .ROUTE .COMPLEX RF: 0 levothyroxine 150 mcg tablet 150 mcg PO DAILY RF: 0 tacrolimus 0.5 mg capsule 0.5 mg PO BID RF: 0 Lantus Solostar U-100 Insulin 100 unit/mL (3 mL) insulin pen 10 unit SUBCUT DAILY RF: 0 Calcium 500 + D 2 tab PO BID RF: 0 Aricept 10 mg tablet 20 mg PO BEDTIME RF: 0 Discharge Orders: Discharge Order (Routine); Ordered 11/19/19 Ordered By: Mary Valencia Referrals: Isra Reyes DO [Primary Care Provider] - Discharge Diet: Usual diet Discharge Activity: Resume usual activity Patient Instructions: Dehydration (ED), Sinusitis (ED) Activity Restrictions/Additional Instructions: Be sure to drink plenty of fluids. Get up slowly from sitting or laying down so that you do not pass out. Return to the ED if worsening symptoms including fever or further episodes of passing out. Follow-up with your regular doctor. Discharge Date/Time: 11/19/19 18:17 Coding Level of Care Code ED Installation & Maintenance Executive for Evette Fwgeorge Exam Comprehensive
[2019-11-19 18:17] VITALS: BP 125/75; PULSE 70; RESP 16; O2SAT 97
== END 2019-11-19 18:17 | disposition home or self-care (01) ==
PROVIDERS: Emergency Provider Emergency Medicine; PCP Internal Medicine
DX: I95.1 Orthostatic hypotension (principal); D89.9 Disorder involving the immune mechanism, unspecified; J01.90 Acute sinusitis, unspecified; Z79.82 Long term (current) use of aspirin; Z79.4 Long term (current) use of insulin
CPT/HCPCS: 12345; 70450; 71045; 72125; 80053; 81003; 84484; 85025; 85610; 93005; 99282; 99283

== ENCOUNTER → 2020-01-18 12:11 | Outpatient (BNVA) | payer MEDICARE, OTHER, SELFPAY | PROVIDERS: PCP Internal Medicine; Visit Provider Specialist | DX: G30.9 Alzheimer's disease, unspecified (principal); F02.80 Dementia in other diseases classified elsewhere, unspecified severity, without behavioral disturbance, psychotic disturbance, mood disturbance, and anxiety | CPT/HCPCS: 99215 ==

== ENCOUNTER 2020-01-18 13:55 | Emergency (ER) | payer MEDICARE, OTHER, SELFPAY ==
[2020-01-18 13:58] VITALS: BP 119/71; PULSE 90; RESP 15; TEMP 36.7; O2SAT 98; BMI 22.9
--- NOTE | 2020-01-18 14:06 | CT_ITS ---
WS: [id number] CT HEAD NONCONTRAST HISTORY: AMS TECHNIQUE: Contiguous axial imaging performed through the brain in 2.5 mm imaging. Bone and soft tiss ue windows. Sagittal and coronal reformats reviewed. All CT scans at [facility] use at le ast one of these dose optimization techniques: automated exposure control; mA and/or kV adjustment pe r patient size (includes targeted exams where dose is matched to clinical indication); or iterative r econstruction. DLP: 757.06 mGy.cm COMPARISON: 11/19/2019 Mixed density, multiloculated, bilateral large subdural hematomas. There is significant mass effect u damon the cerebral bilaterally. Bridging midline shift. Diameter of the RIGHT complex hematoma measures 2.2 cm and on the LEFT 2.1 cm. There is a mixture of acute on chronic blood products. These findings are all new since 11/19/2019. Density along the interhemispheric falx is probably calcification as si milar findings were noted on the prior study. Tentorium is also increased density which may be a comb ination of small amount of blood and calcification. There is significant mass effect upon the brain with effacement of previously seen prominent sulci. Ventricles: Ventricles are slitlike with mass effect. No intraventricular blood is appreciated. No inferior displacement of the cerebellar tonsils. There is no subfalcine herniation at this time. Paranasal sinuses: Extensive mucoperiosteal thickening in the posterior ethmoid air cells and LEFT sp henoid sinus. Mastoid air cells: Well pneumatized. Calvarium and scalp: Skull is intact with no soft tissue edema or swelling. CT/CT head wo con* [id number] IMPRESSION: 1. Large multiloculated mixed density and mixed age subdural hematomas since . Areas of acute hemorrhage superimposed on chronic evolving hemorrhage s resulting in liquefaction of adhesions. 2. There is significant mass effect upon the brain. No midline shift as these hygromas are symmetric. Ventricles are slitlike without hydrocephalus. Notified Mary Valencia MD at 01/18/2020 3:24 PM.
--- NOTE | 2020-01-18 14:06 | ECG_ITS ---
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 Measurements Intervals Corral Rate: 94 P: IA: QRS: 71 QRSD: 83 T: 72 QT: 328 QTc: 412 Interpretive Statements ATRIAL FIBRILLATION ABNORMAL RHYTHM ECG Compared to ECG 11/19/2019 17:08:26 Sinus rhythm no longer present Electronically Signed On 01-18-2020 22:01:31 TELECOM ASSISTANT by Quin Kebede M.D. [id number]
--- NOTE | 2020-01-18 14:06 | XR_ITS ---
WS: [id number] PORTABLE CHEST HISTORY: AMS COMPARISON: 11/19/2019 Lungs are clear and well expanded. No pleural effusion or pneumothorax. Cardiac size: Normal. Mediastinum/Aorta: Normal mediastinum. No osseous abnormality seen. XR/XR chest 1V portable [id number] IMPRESSION: Unremarkable portable chest.
--- NOTE | 2020-01-18 14:29 | ED_ITS ---
HPI - Altered Mental Status General: Chief Complaint: Altered Mental Status Stated Complaint: AMS Time Seen by Provider: 01/18/20 14:04 History of Present Illness: HPI narrative: This patient is a 74-year-old gentleman sent over from Dr. Chavez's office. She sees him for Alzheimer's and today is concerned because he is extremely lethargic and falling to the left. He is unable to sit up or walk. His symptoms have apparently been progressing over the past couple of weeks but accelerated in the last few days. He also did fall about 10 days ago but with no specific report of hitting his head. He has not had a new medicine started but did have his Alzheimer's medication stopped about a month ago by Dr. Reyes for reasons that are unclear. 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 He has had a diagnosis of ehrlichiosis early this spring which she recovered from. He apparently had a syncopal episode in October. He lives with his . Up until the last week or so he has been getting around and active although co ntinues to have memory problems. EMS brought him over and gave 0.4 of Narcan during transport which they felt had improved his mental status pretty significantly however he quickly went back to being lethargic as he was before. A second dose of Narcan did not seem to have any effect. complaint: altered mental status, decreased responsiveness and weakness Onset (ago): week(s) (As per HPI) Timing confirmed by: spouse Severity: severe Consistency of symptoms: Getting Worse Context: change in medication and liver disease Review of Systems General: Reports: ROS unobtainable due to mental status and Other (Limited review of systems per ) Const: Denies: fever(s) or chills Resp: Denies: dyspnea, productive cough or non-productive cough Neuro: Reports: weakness in extremities, difficulty walking, frequent falls and behavioral changes PFSH ED PFSH: Medical History Alzheimer's dementia Dementia Immunosuppressed status Surgical History Liver transplant recipient Family History Denies family history of Diabetes CAD (coronary artery disease) Cancer Hypertension Stroke Social History Smoking and tobacco status: never smoked Alcohol intake: never History of recent travel: No Physical Exam Const: COMMON NORMALS: no acute distress GENERAL APPEARANCE: cooperative, comfortable and lethargic NUTRITIONAL APPEARANCE: thin ORIENTATION/CONSCIOUSNESS: Yes lethargic OTHER: Opens his eyes to voice. Is able to tell me where he is. He does not really know why he is here. He immediately goes back to sleep when not being spoken directly to. HENMT: HEAD & SCALP: normal to inspection FACE & SINUS: normal facial exam Eye: GENERAL EYE: appearance normal, both eyes and all related structures PUPIL: Yes Other pupil findings (Pupils are small bilaterally) EOM: No Nystagmus present Neck/C-Spine: COMMON NORMALS: supple, no meningeal signs and no JVD Chest: COMMONS NORMALS: normal inspection of the chest Resp: COMMON NORMALS: normal respiratory effort, No use of accessory muscles and clear to auscultation bilaterally AUSCULTATION: clear to auscultation bilaterally Cardio: COMMON NORMALS: no JVD, regular rate, regular rhythm and No murmurs present (Cardio) RATE: regular rate RHYTHM: regular rhythm GI: COMMON NORMALS: Normal to inspection, nondistended, normoactive bowel sounds present, Soft to palpation and non-tender INSPECTION: Yes normal to inspection AUSCULTATION: Yes normoactive bowel sounds PALPATION: Yes Soft to palpation Back/Pelvis: COMMON NORMALS: thoracic and lumbar spine normal to inspection Extremity: COMMON NORMALS: normal to inspection Neuro: COMMON NORMALS: moves all extremities (Drift of the left upper ext remity.), no focal motor deficits and no sensory deficits noted; negative for gait normal (Unable to ambulate, unable to sit up without a lot of assistance) SENSORIUM/ORIENTATION: Yes lethargic MENINGEAL SIGNS: Yes no meningeal signs Psych: COMMON NORMALS: mental status grossly normal, cooperative and normal affect Skin: COMMON NORMALS: no rashes or lesions noted and turgor normal GENERAL SKIN EXAM: no rashes or lesions noted and turgor normal Course ED course: Patient with GCS of 13. He will open his eyes and answer questions but is not able to provide too much history. He does know where he is but cannot tell me the day. He immediately goes back to sleep when not stimulated. Sodium came back at 121. CBC is still pending and lab advises that there is a cold agglutinin so it will take some time to run. Chest x-ray was negative. CT the head shows acute on chronic subdural bleeds bilaterally. These appear to be loculated and likely are from intermittent bleeds over some period of time, probably more than the 10 days since his most recent fall. Because of his liver transplant which was done at [place] I called [facility] to see if they could accept him as a patient. I spoke to the neurosurgeon there Dr. Corral, and he advised giving some 3% or 5% sodium to improve the hyponatremia. He was willing to accept the patient but at this time did not have any beds. He is on the wait list for the neuro ICU there. In the meanwhile I also called [facility] and I am waiting to hear back from their neurosurgeon to see about their bed availability. Reevaluation(s): Reevaluation #1: I spoke with Dr. Driver from [facility]. He was not comfortable accepting this patient due to his other medical issues. They also did not have bed availability. We have tried multiple other hospitals in the region and in the state and finally were able to find a bed and an accepting physician in [facility] at [address] The accepting physician is Dr. Thurston and the patient will be going by air to the trauma ED. I discussed this with his . On reevaluation shortly before he went he actually seemed quite a bit better. He was lying with his eyes open watching TV. He was able to answer some questions and seem to understand what was happening. He has had the 3% sodium going for some time now and I will recheck his chemistry. Vital Signs: Vital signs: Vital Signs Temperature 98.0 F 01/18/20 13:58 Pulse Rate 88 01/18/20 19:40 Respiratory Rate 16 01/18/20 19:40 Blood Pressure 116/85 01/18/20 19:40 Pulse Oximetry 99 01/18/20 19:40 MDM - Altered Mental Status Lab Data: Labs: Lab Results 01/18/20 01/18/20 01/18/20 Range/Units 13:45 13:45 13:45 WBC 7.1 (4.0-10.0) 10^3/ uL RBC 4.23 (4.1-5.3) 10^6/u L Hgb 14.2 (11.7-16.6) g/dL Hct 39.7 L (42.0-52.0) % MCV 93.9 (80-94) fL MCH 33.6 (28.0-34.0) pg MCHC 35.8 (30.0-36.0) g/dL RDW 13.1 (12.1-15.1) % Plt Count 129 L (130-400) 10^3/c mm MPV 9.3 (7.4-10.4) fL Neut % (Auto) 66.9 % Lymph % (Auto) 21.5 % [place] % (Auto) 10.5 % Eos % (Auto) 0.1 % Baso % (Auto) 0.3 % Neut # (Auto) 4.73 (1.8-7.7) 10^3/u L Lymph # (Auto) 1.5 (0.8-4.8) 10^3/u L [place] # (Auto) 0.7 (0.2-0.9) 10^3/u L Eos # (Auto) 0.0 (0.0-0.8) 10^3/u L Baso # (Auto) 0.0 (0.0-0.1) 10^3/u L Nucleated RBC % (a uto) 0 % Nucleated RBCs # 0.0 /100WBC PT 14.20 (12.1-14.9) SECO NDS INR 1.07 (0.8-1.2) APTT 32.8 (23.9-36.7) SECO NDS Sodium 121 L (136-145) mmol/L Potassium 4.3 (3.5-5.1) mmol/L Chloride 85 L (98-107) mmol/L Carbon Dioxide 25 (22-29) mmol/L Anion Gap 15.3 (5-19) BUN 18 (8-23) mg/dL Creatinine 0.5 L (0.7-1.2) mg/dL GFR Calculation Not Reportable Glucose 209 H (65-115) mg/dL Calculated Osmolal ity 260 L (285-295) mOsm/k g Calcium 10.3 (8.5-10.5) mg/dL Total Bilirubin 1.1 (0.15-1.2) mg/dL AST 53 H (0-40) U/L ALT 31 (0-41) U/L Alkaline Phosphata se 221 H (40-130) IU/L Total Protein 7.7 (6.6-8.7) g/dL Albumin 4.5 (3.5-5.2) g/dL Globulin 3.2 (1.3-4.6) g/dL Urine Color (Yellow) Urine Appearance (CLEAR) Urine pH (5-7) Ur Specific Gravit y (1.005-1.030) Urine Protein (Negative) Urine Glucose (UA) (Normal) Urine Ketones (Negative) Urine Blood (Negative) Urine Nitrate (Negative) Urine Bilirubin (Negative) Urine Urobilinogen (Negative) mg/dL Ur Leukocyte Ginny ase (Negative) Urine Opiates Scre en (Negative) ng/mL Ur Barbiturates Sc reen (Negative) ng/mL Ur Phencyclidine S crn (Negative) ng/mL Ur Amphetamines Sc reen (Negative) ng/mL U Benzodiazepines Scrn (Negative) ng/mL Urine Cocaine Scre en (Negative) ng/mL U Marijuana (THC) Screen (Negative) ng/mL 01/18/20 01/18/20 01/18/20 Range/Units 15:48 15:48 19:24 WBC (4.0-10.0) 10^3/ uL RBC (4.1-5.3) 10^6/u L Hgb (11.7-16.6) g/dL Hct (42.0-52.0) % MCV (80-94) fL MCH (28.0-34.0) pg MCHC (30.0-36.0) g/dL RDW (12.1-15.1) % Plt Count (130-400) 10^3/c mm MPV (7.4-10.4) fL Neut % (Auto) % Lymph % (Auto) % [place] % (Auto) % Eos % (Auto) % Baso % (Auto) % Neut # (Auto) (1.8-7.7) 10^3/u L Lymph # (Auto) (0.8-4.8) 10^3/u L [place] # (Auto) (0.2-0.9) 10^3/u L Eos # (Auto) (0.0-0.8) 10^3/u L Baso # (Auto) (0.0-0.1) 10^3/u L Nucleated RBC % (a uto) % Nucleated RBCs # /100WBC PT (12.1-14.9) SECO NDS INR (0.8-1.2) APTT (23.9-36.7) SECO NDS Sodium 127 L (136-145) mmol/L Potassium 4.2 (3.5-5.1) mmol/L Chloride 90 L (98-107) mmol/L Carbon Dioxide 27 (22-29) mmol/L Anion Gap 14.2 (5-19) BUN 16 (8-23) mg/dL Creatinine 0.6 L (0.7-1.2) mg/dL GFR Calculation Not Reportable Glucose 153 H (65-115) mg/dL Calculated Osmolal ity 268 L (285-295) mOsm/k g Calcium 10.1 (8.5-10.5) mg/dL Total Bilirubin (0.15-1.2) mg/dL AST (0-40) U/L ALT (0-41) U/L Alkaline Phosphata se (40-130) IU/L Total Protein (6.6-8.7) g/dL Albumin (3.5-5.2) g/dL Globulin (1.3-4.6) g/dL Urine Color Yellow (Yellow) Urine Appearance Clear (CLEAR) Urine pH 6 (5-7) Ur Specific Gravit y 1.020 (1.005-1.030) Urine Protein Neg (Negative) Urine Glucose (UA) Norm (Normal) Urine Ketones 1+ H (Negative) Urine Blood Neg (Negative) Urine Nitrate Negative (Negative) Urine Bilirubin Neg (Negative) Urine Urobilinogen Norm (Negative) mg/dL Ur Leukocyte Ginny ase Negative (Negative) Urine Opiates Scre en Negative (Negative) ng/mL Ur Barbiturates Sc reen Negative (Negative) ng/mL Ur Phencyclidine S crn Negative (Negative) ng/mL Ur Amphetamines Sc reen Negative (Negative) ng/mL U Benzodiazepines Scrn Negative (Negative) ng/mL Urine Cocaine Scre en Negative (Negative) ng/mL U Marijuana (THC) Screen Negative (Negative) ng/mL Discharge Plan Discharge Patient Disposition: Xfer Short-Term Hosp Referrals: Isra Reyes DO [Primary Care Provider] - Coding Level of Care Code ED Cook Fry for Chg Fwd Exam Comprehensive
[2020-01-18 14:52] LABS: INR 1.07 (0.8-1.2)
[2020-01-18 14:54] LABS: Partial Thromboplastin Time 32.8 SECONDS (23.9-36.7)
[2020-01-18 15:06] LABS: Alanine Aminotransferase 31 U/L (0-41); Albumin Level 4.5 g/dL (3.5-5.2); Alkaline Phosphatase 221 IU/L (40-130); Anion Gap 15.3 (5-19); Aspartate Amino Transferase 53 U/L (0-40); Blood Urea Nitrogen 18 mg/dL (8-23); Calcium 10.3 mg/dL (8.5-10.5); Carbon Dioxide 25 mmol/L (22-29); Chloride 85 mmol/L (98-107); Creatinine Clr Calc Pharmacy 84.7155; Globulin 3.2 g/dL (1.3-4.6); Glucose 209 mg/dL (65-115); Osmolality Calculated 260 mOsm/kg (285-295); Potassium 4.3 mmol/L (3.5-5.1); Sodium 121 mmol/L (136-145); Total Bilirubin 1.1 mg/dL (0.15-1.2); Total Protein 7.7 g/dL (6.6-8.7)
[2020-01-18 16:10] VITALS: BP 161/91; PULSE 90; RESP 16; O2SAT 96
[2020-01-18] MEDS: sodium chloride 3% 500 ML 50 ML IV (16:18)
[2020-01-18 16:33] LABS: Add Urine Microscopic? NO
[2020-01-18 17:21] LABS: Bilirubin Urine Neg (Negative); Blood Urine Neg (Negative); Glucose Urine UA Norm (Normal); Ketones Urine 1+ (Negative); Leukocyte Esterase Urine Negative (Negative); Nitrate Urine Negative (Negative); Protein Urine Neg (Negative); Urine Appearance Clear (CLEAR); Urine Color Yellow (Yellow); Urobilinogen Urine Norm (Negative); pH Urine 6 (5-7)
[2020-01-18 17:49] LABS: Basophils % 0.3 %; Eosinophils % 0.1 %; Hematocrit 39.7 % (42.0-52.0); Hemoglobin 14.2 g/dL (11.7-16.6); Lymphocytes # 1.5 10^3/uL (0.8-4.8); Lymphocytes % 21.5 %; Mean Corpuscular HGB Conc 35.8 g/dL (30.0-36.0); Mean Corpuscular Hemoglobin 33.6 pg (28.0-34.0); Mean Corpuscular Volume 93.9 fL (80-94); Mean Platelet Volume 9.3 fL (7.4-10.4); Monocytes # 0.7 10^3/uL (0.2-0.9); Monocytes % 10.5 %; Neutrophils # 4.73 10^3/uL (1.8-7.7); Neutrophils % 66.9 %; Nucleated Red Blood Cells % 0 %; Platelet Count 129 10^3/cmm (130-400); Red Blood Count 4.23 10^6/uL (4.1-5.3); Red Cell Distribution Width 13.1 % (12.1-15.1); White Blood Count 7.1 10^3/uL (4.0-10.0)
[2020-01-18 18:36] LABS: Slide Review Slide Review Perform
[2020-01-18 18:56] LABS: Amphetamines Screen Urine Negative (Negative); Barbiturates Screen Urine Negative (Negative); Benzodiazepines Screen Urine Negative (Negative); Cocaine Screen Urine Negative (Negative); Opiate Screen Urine Negative (Negative); PCP Screen Urine Negative (Negative); THC Screen Urine Negative (Negative)
[2020-01-18 19:40] VITALS: BP 116/85; PULSE 88; RESP 16; O2SAT 99
[2020-01-18 20:10] LABS: Anion Gap 14.2 (5-19); Blood Urea Nitrogen 16 mg/dL (8-23); Calcium 10.1 mg/dL (8.5-10.5); Carbon Dioxide 27 mmol/L (22-29); Chloride 90 mmol/L (98-107); Creatinine Clr Calc Pharmacy 84.7155; Glucose 153 mg/dL (65-115); Osmolality Calculated 268 mOsm/kg (285-295); Potassium 4.2 mmol/L (3.5-5.1); Sodium 127 mmol/L (136-145)
== END 2020-01-18 19:40 | disposition short-term general hospital (02) ==
LOC: ER 14:18
PROVIDERS: Emergency Provider Emergency Medicine; PCP Internal Medicine
DX: R41.82 Altered mental status, unspecified (principal); G30.9 Alzheimer's disease, unspecified; F02.80 Dementia in other diseases classified elsewhere, unspecified severity, without behavioral disturbance, psychotic disturbance, mood disturbance, and anxiety
CPT/HCPCS: 12345; 70450; 71045; 80048; 80053; 80306; 81003; 85025; 85610; 85730; 93005; 96360; 96361; 99215; 99282; 99285; J7131